=== PATIENT | male | born 1955 | race Caucasian/White ===

== ENCOUNTER 2016-12-13 07:49 | Outpatient (CLI) | payer OTHER | END 2016-12-13 07:50 | disposition home or self-care (01) | DX: E78.2 Mixed hyperlipidemia (principal); E11.9 Type 2 diabetes mellitus without complications; R53.83 Other fatigue ==

== ENCOUNTER 2017-02-13 07:11 | Day surgery (SDC) | payer OTHER ==
[2017-02-13] MEDS ORDERED: LACTATED RINGERS 1,000 ML IV ONE (07:26)
[2017-02-13] MEDS ORDERED: fentaNYL 100 MCG/2 ML VIAL IVP ONE (09:32)
[2017-02-13] MEDS ORDERED: MIDAZOLAM 2 MG/2 ML VIAL IVP ONE (09:32)
[2017-02-13 10:49] VITALS: BP 128/71
== END 2017-02-13 07:12 | disposition home or self-care (01) ==
LOC: SDS 07:11
PROVIDERS: ATTEND Surgery
PROC: 0DJ08ZZ Inspection of Upper Intestinal Tract, Via Natural or Artificial Opening Endoscopic (ICD-10-PCS; principal; 2017-02-13 08:15)
PROC: 0DBK8ZX Excision of Ascending Colon, Via Natural or Artificial Opening Endoscopic, Diagnostic (ICD-10-PCS; 2017-02-13 08:15)
DX: Z12.11 Encounter for screening for malignant neoplasm of colon (principal); D12.5 Benign neoplasm of sigmoid colon; Z87.19 Personal history of other diseases of the digestive system; K64.8 Other hemorrhoids; Z88.5 Allergy status to narcotic agent; Z79.01 Long term (current) use of anticoagulants; E78.5 Hyperlipidemia, unspecified; I10 Essential (primary) hypertension; F41.9 Anxiety disorder, unspecified; Z87.891 Personal history of nicotine dependence; Z79.82 Long term (current) use of aspirin; E11.9 Type 2 diabetes mellitus without complications; I48.91 Unspecified atrial fibrillation; Z79.84 Long term (current) use of oral hypoglycemic drugs
CPT/HCPCS: 43235; 45380; J7120; 88305

== ENCOUNTER 2017-10-05 12:34 | Outpatient (CLI) | payer OTHER ==
--- NOTE | 2017-10-05 16:26 | MRI Report ---
EXAM: MRI CERVICAL SPINE WITHOUT CONTRAST EXAM DATE: 10/05/2017 01:22 PM. CLINICAL HISTORY: RADICULOPATHY, CERVICAL REGION. Right shoulder pain. COMPARISONS: CT head 01/10/2016 TECHNIQUE: Multiplanar, multisequence T1-weighted and fluid-sensitive sequences of the cervical spine without contrast. Other: None. FINDINGS: Neurologic Structures: The visualized posterior fossa structures are unremarkable. No signal abnormal ity in the visualized spinal cord. Alignment: No scoliosis or spondylolisthesis. Bone Marrow: No gross fractures . A T1 and T2 hyperintense lesion within the C5 vertebral body is non specific but favored to represent a benign hemangioma. No marrow edema. 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 Interspace Levels/Facets: C1-C2: Unremarkable. C2-C3: Mild disk height loss and desiccation. Moderate right and mild left facet arthropathy. Mild ri ght neuroforaminal narrowing. No left neuroforaminal. Mild central canal narrowing. C3-C4: Mild disk height loss and desiccation. Mild diffuse disk bulge. Moderate right and mild left u ncovertebral spurring. Mild bilateral facet arthropathy. Moderate right neuroforaminal narrowing. No left neuroforaminal narrowing. Mild central canal narrowing. C4-C5: Moderate disk height loss and desiccation. Moderate disk osteophyte complex with superimposed central protrusion measuring 4 mm (series 801 image 16) indenting the ventral aspect of the cord. Mod erate bilateral uncovertebral spurring. Mild bilateral facet arthropathy. Moderate central canal narr owing. Moderate right and mild left neuroforaminal narrowing. C5-C6: Moderate disk height loss and desiccation. Moderate disk osteophyte complex. Moderate to sever e bilateral uncovertebral spurring. Mild bilateral facet arthropathy. Moderate central canal narrowin g. Moderate to severe bilateral neuroforaminal narrowing. C6-C7: Moderate disk height loss and desiccation. Moderate posterior disk osteophyte complex, slightl y asymmetric to the left. Severe left and moderate to severe right uncovertebral spurring. Mild-to-mo derate bilateral facet arthropathy. Moderate to severe central canal narrowing. Moderate to severe le ft and moderate right neuroforaminal narrowing. C7-T1: No significant central canal or neuroforaminal narrowing. Musculature: Normal. No edema or fatty atrophy. Other: The paravertebral and prevertebral soft tissues are normal. IMPRESSION: 1. Moderate multilevel degenerative spondylosis, as detailed above and summarized below. 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 No evidence of acute fracture or malalignment. No bone marrow edema. No cor d signal abnormality at any level. 2. C2-C3 level demonstrates mild right neuroforaminal narrowing. No left neuroforaminal. Mild central canal narrowing. 3. C3-C4 level demonstrates moderate right neuroforaminal narrowing. No left neuroforaminal narrowing . Mild central canal narrowing. 4. C4-C5 level demonstrates moderate central canal narrowing. Moderate right and mild left neuroforam inal narrowing. 5. C5-C6 level demonstrates moderate central canal narrowing. Moderate to severe bilateral neuroforam inal narrowing. 6. C6-C7 level demonstrates moderate to severe central canal narrowing. Moderate to severe left and m oderate right neuroforaminal narrowing. [facility] Referring Provider Line: [phone] SITE ID: [id number]
== END 2017-10-05 12:35 | disposition home or self-care (01) ==
LOC: DI 12:34
PROVIDERS: ATTEND Orthopaedic Surgery
DX: M50.31 Other cervical disc degeneration, high cervical region (principal); M47.892 Other spondylosis, cervical region; M50.221 Other cervical disc displacement at C4-C5 level
CPT/HCPCS: 72141

== ENCOUNTER 2017-10-20 09:38 | Outpatient (CLI) | payer OTHER ==
[2017-10-20 10:14] LABS: ALBUMIN 4.3 g/dL (3.2-5.5); ALBUMIN/GLOBULIN RATIO 1.3 (1.0-2.2); ALKALINE PHOSPHATASE 59 IU/L (42-121); ALT ALANINE AMINOTRANSFERASE 78 IU/L (10-60); AST ASPARTATE AMINOTRANSFERASE 48 IU/L (10-42); BILIRUBIN,TOTAL 0.8 mg/dL (0.2-1.0); BUN - BLOOD UREA NITROGEN 17 mg/dL (6-20); CALCIUM 9.3 mg/dL (8.5-10.3); CARBON DIOXIDE - CO2 21 mmol/L (21-32); CHLORIDE 103 mmol/L (101-111); CHOL/HDL RATIO 6.9 (<5.0); CHOLESTEROL 242 mg/dL; GFR - MDRD 76 (>89); GLUCOSE 187 mg/dL (70-100); HDL CHOLESTEROL 35 mg/dL; SODIUM 136 mmol/L (135-145); TOTAL PROTEIN 7.5 g/dL (6.7-8.2)
[2017-10-20 10:35] LABS: LDL CHOLESTEROL,DIRECT 137 mg/dL; LDLD/HDL RATIO 3.9 (<3.6)
== END 2017-10-20 09:39 | disposition home or self-care (01) ==
LOC: LAB 09:38
PROVIDERS: ATTEND Family Medicine
DX: E78.5 Hyperlipidemia, unspecified (principal)
CPT/HCPCS: 36415; 80053; 80061

== ENCOUNTER 2017-11-04 09:44 | Outpatient (CLI) | payer OTHER ==
[2017-11-04 10:33] LABS: ALBUMIN 4.2 g/dL (3.2-5.5); ALBUMIN/GLOBULIN RATIO 1.6 (1.0-2.2); BILIRUBIN,TOTAL 0.7 mg/dL (0.2-1.0); CALCIUM 9.2 mg/dL (8.5-10.3); TOTAL PROTEIN 6.9 g/dL (6.7-8.2)
[2017-11-08 18:06] LABS: 18 KD (IGG) BAND NON-REACTIVE; 23 KD (IGG) BAND NON-REACTIVE; 23 KD (IGM) BLOT NON-REACTIVE; 28 KD (IGG) BAND NON-REACTIVE; 30 KD (IGG) BAND NON-REACTIVE; 39 KD (IGG) BAND NON-REACTIVE; 39 KD (IGM) BLOT NON-REACTIVE; 41 KD (IGG) BAND NON-REACTIVE; 41 KD (IGM) BLOT REACTIVE; 45 KD (IGG) BAND NON-REACTIVE; 58 KD (IGG) BAND NON-REACTIVE; 66 KD (IGG) BAND NON-REACTIVE; 93 KD (IGG) BAND NON-REACTIVE
== END 2017-11-04 09:45 | disposition home or self-care (01) ==
LOC: LAB 09:44
PROVIDERS: ATTEND Family Medicine
DX: R74.8 Abnormal levels of other serum enzymes (principal); E29.8 Other testicular dysfunction; R41.3 Other amnesia; R53.83 Other fatigue
CPT/HCPCS: 36415; 80053; 84403; 86617

== ENCOUNTER 2017-11-24 09:02 | Outpatient (CLI) | payer OTHER ==
--- NOTE | 2017-11-24 14:24 | Ultrasound Report ---
RIGHT UPPER QUADRANT ULTRASOUND: 11/24/2017 CLINICAL INDICATION: Elevated liver enzymes. TECHNIQUE: Real-time scanning was performed with circulation representative static images obtained. FINDINGS: The liver measures 18.8 cm. Hepatic echogenicity is increased, compatible with fatty infiltration. No focal parenchymal lesion or intrahepatic biliary dilatation is seen. The common bile duct measures 7 mm. The gallbladder is unremarkable. The right kidney measures 14.2 cm, and demonstrates no hydronephrosis. No free fluid is present. IMPRESSION: FATTY INFILTRATION OF THE LIVER. TD: 11/24/2017 14:22
== END 2017-11-24 09:03 | disposition home or self-care (01) ==
LOC: DI 09:02
PROVIDERS: ATTEND Family Medicine
DX: K76.0 Fatty (change of) liver, not elsewhere classified (principal)
CPT/HCPCS: 76705

== ENCOUNTER 2017-12-28 13:43 | Outpatient (CLI) | payer OTHER | END 2017-12-28 13:44 | disposition home or self-care (01) | LOC: SC 13:43 | PROVIDERS: ATTEND Nurse Practitioner Family | DX: G47.33 Obstructive sleep apnea (adult) (pediatric) (principal) | CPT/HCPCS: 99212; 99214 ==

== ENCOUNTER 2018-01-26 13:54 | Outpatient (CLI) | payer OTHER ==
[2018-01-26 14:20] LABS: CREATININE 1.1 mg/dL (0.6-1.2)
== END 2018-01-26 13:55 | disposition home or self-care (01) ==
LOC: LAB 13:54
PROVIDERS: ATTEND Family Medicine
DX: M54.16 Radiculopathy, lumbar region (principal)
CPT/HCPCS: 36415; 82565

== ENCOUNTER 2018-01-29 07:52 | Outpatient (CLI) | payer OTHER ==
[~2018-01-29 07:52] MED LIST: GADOBUTROL 10 MMOL/10 ML SYRINGE ONE
[2018-01-29] MEDS: GADOBUTROL 10 MMOL/10 ML SYRINGE IVP ONE (08:37)
--- NOTE | 2018-01-29 12:32 | MRI Report ---
MRI LUMBAR SPINE WITHOUT AND WITH CONTRAST EXAM DATE: 01/29/2018. INDICATION: 62-year-old male with left-sided low back pain and pain radiating into left buttock down back of left thigh and in left knee. History of previous hemilaminotomy and microdiskectomy at L5-S1. Please assess. TECHNIQUE: 1. Sagittal STIR, T1 and T2. 2. Axial T1 and T2. 3. 10 cc IV Gadavist. T1 axial and fat-saturated T1 sagittal. COMPARISON: 07/15/2013 ([facility]). FINDINGS: Interpretation assumes the presence of 5 [id number]-[id number], lumbar-type vertebrae. There is some straightening of the vertebral alignment with very minimal lordosis, unchanged. Alignme nt is otherwise unremarkable. Degenerative changes are demonstrated in the disks at all levels from L2-L3 to L5-S1. There is minima l disk space narrowing at L3-L4 with mild narrowing at L4-L5 and L5-S1, unchanged. The lumbar disk sp yeny heights are otherwise preserved. An intraosseous hemangioma is identified in the T12 vertebral body. The marrow signal intensity is ot herwise unremarkable. The conus terminates in an appropriate fashion at about the L1-L2 disk level. There is no abnormal th ickening or lipomatous change of the filum. Axial images were obtained from L2-L3 to L5-S1. Review level by level reveals the following: L2-L3: Broad-based, intra-/extraforaminal protrusions bilaterally. The previously demonstrated extrus ion posterolaterally on the right has completely resolved. No significant spinal stenosis. Mild to mo derate foraminal narrowing bilaterally, essentially unchanged. L3-L4: Broad-based intra-/extraforaminal protrusion on the right and extrusion on the left, essential ly unchanged. Early degenerative facet arthrosis without significant bony hypertrophy. No significant -appearing spinal stenosis. Moderate bilateral foraminal stenoses, essentially unchanged. L4-L5: Circumferential disk bulge with broad-based intra-/extraforaminal protrusions bilaterally. Deg enerative facet arthrosis without associated bony hypertrophy. Mild to moderate redundancy of the lig amenta flava. Mild mass effect on the thecal sac without significant spinal stenosis. Moderate forami nal stenoses, unchanged. L5-S1: Postsurgical changes are again demonstrated with evidence of previous left hemilaminotomy. The left ligamentum flavum has been partially removed. There is a moderate-sized extrusion paracentrally on the left that has increased in size since the previous study. It now projects posteriorly into th e spinal canal for close to 10 mm, compared to about 6.2 mm on the previous examination. There is hig h-grade left subarticular zone stenosis with posterior deflection and compression of the traversing l eft S1 nerve root in the left subarticular zone. Again demonstrated is a conjoined root sleeve for th e left L5 and S1 nerve roots, explaining the low position of the left L5 nerve root in the left L5-S1 foramen. No central zone or right subarticular zone stenosis. Mild foraminal stenoses. Postcontrast images demonstrate peripheral enhancement at the L5-S1 extrusion. No pathologic intraspi nal enhancement is identified. IMPRESSION: 1. Interval resolution of previously demonstrated, right-sided disk herniation at L2-L3 with resoluti on of previously seen right L2-L3 subarticular zone stenosis. 2. Interval increase in size of left-sided extrusion at L5-S1. This results in more severe left subar ticular zone stenosis. There is posterior deflection and compression of traversing left S1 nerve root . This almost certainly represents the cause for the patient's left-sided radicular symptoms. Recomme nd clinical correlation for left S1 radiculopathy. Referring Provider Line: [phone] SITE ID: [id number]
== END 2018-01-29 07:53 | disposition home or self-care (01) ==
LOC: DI 07:52
PROVIDERS: ATTEND Family Medicine
DX: M51.17 Intervertebral disc disorders with radiculopathy, lumbosacral region (principal)
CPT/HCPCS: 72158; A9585

== ENCOUNTER 2018-05-15 08:20 | Outpatient (CLI) | payer OTHER ==
[2018-05-15 09:16] LABS: ALBUMIN 4.3 g/dL (3.2-5.5); ALBUMIN/GLOBULIN RATIO 1.5 (1.0-2.2); ALKALINE PHOSPHATASE 55 IU/L (42-121); ALT ALANINE AMINOTRANSFERASE 51 IU/L (10-60); AST ASPARTATE AMINOTRANSFERASE 33 IU/L (10-42); BILIRUBIN,TOTAL 1.1 mg/dL (0.2-1.0); BUN - BLOOD UREA NITROGEN 14 mg/dL (6-20); CALCIUM 9.3 mg/dL (8.5-10.3); CARBON DIOXIDE - CO2 26 mmol/L (21-32); CHLORIDE 103 mmol/L (101-111); CHOL/HDL RATIO 3.7 (<5.0); CHOLESTEROL 134 mg/dL; GFR - MDRD 76 (>89); GLUCOSE 204 mg/dL (70-100); HDL CHOLESTEROL 36 mg/dL; LDL CHOLESTEROL,CALCULATED 54 mg/dL; LDL/HDL RATIO 1.5 (<3.6); SODIUM 138 mmol/L (135-145); TOTAL PROTEIN 7.1 g/dL (6.7-8.2); VLDL CHOLESTEROL 44 mg/dL
== END 2018-05-15 08:21 | disposition home or self-care (01) ==
LOC: LAB 08:20
PROVIDERS: ATTEND Family Medicine
DX: R74.8 Abnormal levels of other serum enzymes (principal); E78.5 Hyperlipidemia, unspecified
CPT/HCPCS: 36415; 80053; 80061; 83721

== ENCOUNTER 2018-07-05 15:53 | Outpatient (CLI) | payer OTHER ==
[2018-07-05 16:20] LABS: BASOPHILS % (AUTO) 0.5 %; EOSINOPHILS # (AUTO) 0.1 10^3/uL (0.0-0.7); EOSINOPHILS % (AUTO) 1.1 %; LYMPHOCYTES # (AUTO) 1.8 10^3/uL (1.5-3.5); LYMPHOCYTES % (AUTO) 24.3 %; MEAN CORPUSCULAR HEMOGLOBIN 32.3 pg (27.0-31.0); MEAN CORPUSCULAR HGB CONC 35.2 g/dL (32.0-36.0); MEAN CORPUSCULAR VOLUME 91.6 fL (80.0-94.0); MEAN PLATELET VOLUME 7.8 fL (7.4-11.4); MONOCYTES # (AUTO) 0.5 10^3/uL (0.0-1.0); MONOCYTES % (AUTO) 6.1 %; NEUTROPHILS # (AUTO) 5.2 10^3/uL (1.5-6.6); PLT - PLATELET COUNT 212 10^3/uL (130-450); RED BLOOD COUNT 4.65 10^6/uL (4.70-6.10); RED CELL DISTRIBUTION WIDTH 13.5 % (12.0-15.0); WHITE BLOOD COUNT 7.6 x10^3/uL (4.8-10.8)
[2018-07-05 16:30] LABS: ALBUMIN 4.1 g/dL (3.2-5.5); ALBUMIN/GLOBULIN RATIO 1.4 (1.0-2.2); BILIRUBIN,TOTAL 0.7 mg/dL (0.2-1.0); CALCIUM 9.9 mg/dL (8.5-10.3); CREATININE 0.9 mg/dL (0.6-1.2)
[2018-07-05 19:25] LABS: HB2 TOTAL 16.5 g/dL; HEMOGLOBIN A1C 1.02 g/dL; HEMOGLOBIN A1C % 7.8 % (4.6-6.2)
== END 2018-07-05 15:54 | disposition home or self-care (01) ==
LOC: LAB 15:53
PROVIDERS: ATTEND Family Medicine
DX: I10 Essential (primary) hypertension (principal); E11.9 Type 2 diabetes mellitus without complications
CPT/HCPCS: 36415; 80053; 82043; 83036; 85025

== ENCOUNTER 2018-12-05 10:32 | Outpatient (CLI) | payer OTHER ==
[2018-12-05 10:50] LABS: BASOPHILS % (AUTO) 0.5 %; EOSINOPHILS # (AUTO) 0.2 10^3/uL (0.0-0.7); EOSINOPHILS % (AUTO) 3.3 %; HGB - HEMOGLOBIN 15.1 g/dL (14.0-18.0); LYMPHOCYTES # (AUTO) 1.7 10^3/uL (1.5-3.5); LYMPHOCYTES % (AUTO) 24.3 %; MEAN CORPUSCULAR HEMOGLOBIN 31.6 pg (27.0-31.0); MEAN CORPUSCULAR HGB CONC 35.5 g/dL (32.0-36.0); MEAN CORPUSCULAR VOLUME 89.1 fL (80.0-94.0); MEAN PLATELET VOLUME 7.9 fL (7.4-11.4); MONOCYTES # (AUTO) 0.5 10^3/uL (0.0-1.0); MONOCYTES % (AUTO) 6.9 %; NEUTROPHILS # (AUTO) 4.5 10^3/uL (1.5-6.6); PLT - PLATELET COUNT 199 10^3/uL (130-450); RED BLOOD COUNT 4.77 10^6/uL (4.70-6.10); RED CELL DISTRIBUTION WIDTH 13.6 % (12.0-15.0); WHITE BLOOD COUNT 6.9 x10^3/uL (4.8-10.8)
[2018-12-05 11:03] LABS: HB2 TOTAL 17.3 g/dL; HEMOGLOBIN A1C 0.88 g/dL; HEMOGLOBIN A1C % 6.8 % (4.6-6.2)
[2018-12-05 11:14] LABS: ALBUMIN 4.2 g/dL (3.2-5.5); ALBUMIN/GLOBULIN RATIO 1.4 (1.0-2.2); ALKALINE PHOSPHATASE 51 IU/L (42-121); ALT ALANINE AMINOTRANSFERASE 42 IU/L (10-60); AST ASPARTATE AMINOTRANSFERASE 30 IU/L (10-42); BILIRUBIN,TOTAL 1.1 mg/dL (0.2-1.0); BUN - BLOOD UREA NITROGEN 19 mg/dL (6-20); CALCIUM 9.3 mg/dL (8.5-10.3); CARBON DIOXIDE - CO2 24 mmol/L (21-32); CHLORIDE 104 mmol/L (101-111); CHOLESTEROL 147 mg/dL; CREATININE 0.8 mg/dL (0.6-1.2); GFR - MDRD 98 (>89); GLUCOSE 190 mg/dL (70-100); HDL CHOLESTEROL 37 mg/dL; LDL CHOLESTEROL,CALCULATED 70 mg/dL; LDL/HDL RATIO 1.9 (<3.6); SODIUM 138 mmol/L (135-145); TOTAL PROTEIN 7.1 g/dL (6.7-8.2); VLDL CHOLESTEROL 40 mg/dL
== END 2018-12-05 10:33 | disposition home or self-care (01) ==
LOC: LAB 10:32
PROVIDERS: ATTEND Family Medicine
DX: I10 Essential (primary) hypertension (principal); E78.5 Hyperlipidemia, unspecified; E11.9 Type 2 diabetes mellitus without complications; F32.9 Major depressive disorder, single episode, unspecified
CPT/HCPCS: 36415; 80053; 80061; 83036; 83721; 84443; 85025

== ENCOUNTER 2018-12-27 11:23 | Outpatient (CLI) | payer OTHER | END 2018-12-27 11:24 | disposition home or self-care (01) | LOC: SC 11:23 | PROVIDERS: ATTEND Nurse Practitioner Family | DX: G47.33 Obstructive sleep apnea (adult) (pediatric) (principal) | CPT/HCPCS: 99212; 99214 ==

== ENCOUNTER 2018-12-27 13:32 | Outpatient (CLI) | payer OTHER ==
[2018-12-27] MEDS ORDERED: GADOBUTROL 10 MMOL/10 ML VIAL ONE (13:42)
[2018-12-27] MEDS ORDERED: GADOBUTROL 10 MMOL/10 ML VIAL IVP ONE (14:13)
--- NOTE | 2018-12-28 07:02 | MRI Report ---
Reason: LUMBAR RADICULOPATHY,LEG WEAKNESS,LEFT,LOW BACK PA Procedure Date: 12/27/2018 Accession Number: [id number] / [id number] Procedure: MRI - Lumbar Spine W/WO CPT Code: FULL RESULT: EXAM: MRI LUMBAR SPINE WITHOUT AND WITH CONTRAST EXAM DATE: 12/27/2018 02:44 PM. CLINICAL HISTORY: Lumbar radiculopathy. Left leg weakness. Low back pain. Previous lumbar spine surgery. COMPARISONS: LUMBAR SPINE W/WO 01/29/2018 8:00 AM. TECHNIQUE: Multiplanar, multisequence T1-weighted and fluid-sensitive sequences of the lumbar spine from T12 to S1 before and after administration of intravenous contrast. Other: None. IV contrast: 10 mL Gadavist. FINDINGS: Neurologic Structures: The conus terminates at L1. The conus medullaris and cauda equina are unremarkable. Alignment: Minimal L4 on L5 anterolisthesis. No significant alignment change. Bone Marrow: Five [id number] lumbar vertebral bodies are assumed. Lumbar vertebral body heights are maintained. No acute marrow edema. Disk Levels/Facets: T12-L1: Unremarkable. L1-L2: Unremarkable. L2-L3: Stable mild to moderate bilateral (right greater than left) foraminal stenosis from intraforaminal bilateral disk protrusions with osteophyte. Patent central canal. Enhancing right intraforaminal annular fissure. L3-L4: Stable appearing degenerative disk disease and facet arthropathy. Circumferential disk bulge. Additional asymmetric intraforaminal and far lateral disk protrusions with osteophytes, larger on the left than the right. No significant or progressive central stenosis. Again seen are findings of bilateral foraminal stenosis, moderate on the right and moderate to severe on the left. L4-L5: New moderate to severe left foraminal stenosis secondary to an upward migrating disk extrusion starting to the left of midline and extending upward and laterally into the left neural foramen with apparent left L4 nerve root compression. Degenerative changes at this level otherwise appear stable. L5-S1: Previous left-sided laminectomy and diskectomy. Disk extrusion on the left seen previously is no longer evident, no recurrent focal disk extrusion. Residual shallow left of midline posterior protrusion with annular T2 hyperintensity and enhancement that may be degenerative, postoperative or both. Enhancing epidural scar along the surgical tract on the left. Patent central canal and right lateral recess. No significant residual degenerative left lateral recess stenosis where there is enhancing residual perioperative scar. Stable appearing degenerative foraminal stenosis, mild on the right and moderate on the left from left intraforaminal disk protrusion with osteophyte that is similar to prior. Again demonstrated are findings of left L5 and S1 conjoined nerve roots. Spinal Canal: No enhancing masses within the spinal canal. No epidural abscess. Musculature: No acute abnormality. Other: None. IMPRESSION: 1. New severe appearing foraminal stenosis on the left at L4-L5 from intraforaminal disk extrusion. 2. Again seen are findings of previous surgery posteriorly on the left at L5-S1. Residual epidural scar but no focal recurrent disk extrusion. 3. Stable degenerative foraminal stenosis at L5-S1, most notable on the left. Conjoined left L5 and S1 nerve roots placed the L5 nerve lower in the foramen than usual which places it at increased risk of impingement from degenerative foraminal stenosis which is present at this level on the left. 4. Stable prominent bilateral degenerative foraminal stenosis at L3-L4, especially severe on the left. 5. Stable appearing more prominent right than left foraminal stenosis at L2-L3. Comment: The following findings are so common in adults without low back pain that while we report their presence, they must be interpreted with caution and in the context of the clinical situation. (Reference Mattvik et al, Spine 2001) Prevalence of findings in patients without low back pain: Disk degeneration (any evidence): 92% Disk desiccation/T2 signal loss: 83% Disk height loss: 56% Disk bulge: 64% Disk protrusion: 32% Annular tear/high intensity zone: 38% [facility]
== END 2018-12-27 13:33 | disposition home or self-care (01) ==
LOC: DI 13:32
PROVIDERS: ATTEND Family Medicine
DX: M48.061 Spinal stenosis, lumbar region without neurogenic claudication (principal); M54.5 Low back pain; M54.16 Radiculopathy, lumbar region; G83.10 Monoplegia of lower limb affecting unspecified side
CPT/HCPCS: 72158; A9585

== ENCOUNTER 2019-02-28 11:17 | Outpatient (CLI) | payer OTHER | END 2019-02-28 11:18 | disposition home or self-care (01) | LOC: SC 11:17 | PROVIDERS: ATTEND Nurse Practitioner Family | DX: G47.33 Obstructive sleep apnea (adult) (pediatric) (principal) | CPT/HCPCS: 99212; 99214 ==

== ENCOUNTER 2019-03-26 08:31 | Outpatient (CLI) | payer OTHER ==
[2019-03-26 08:52] LABS: BASOPHILS % (AUTO) 0.6 %; EOSINOPHILS # (AUTO) 0.2 10^3/uL (0.0-0.7); EOSINOPHILS % (AUTO) 4.1 %; HGB - HEMOGLOBIN 14.3 g/dL (14.0-18.0); LYMPHOCYTES # (AUTO) 1.6 10^3/uL (1.5-3.5); LYMPHOCYTES % (AUTO) 32.8 %; MEAN CORPUSCULAR HEMOGLOBIN 30.9 pg (27.0-31.0); MEAN CORPUSCULAR HGB CONC 34.9 g/dL (32.0-36.0); MEAN CORPUSCULAR VOLUME 88.5 fL (80.0-94.0); MEAN PLATELET VOLUME 7.7 fL (7.4-11.4); MONOCYTES # (AUTO) 0.4 10^3/uL (0.0-1.0); MONOCYTES % (AUTO) 7.8 %; NEUTROPHILS # (AUTO) 2.7 10^3/uL (1.5-6.6); NEUTROPHILS % (AUTO) 54.7 %; PLT - PLATELET COUNT 215 10^3/uL (130-450); RED BLOOD COUNT 4.64 10^6/uL (4.70-6.10); RED CELL DISTRIBUTION WIDTH 14.5 % (12.0-15.0); WHITE BLOOD COUNT 4.9 x10^3/uL (4.8-10.8)
[2019-03-26 09:16] LABS: HB2 TOTAL 14.6 g/dL; HEMOGLOBIN A1C 0.67 g/dL; HEMOGLOBIN A1C % 6.4 % (4.6-6.2)
[2019-03-26 09:19] LABS: ALBUMIN 4.3 g/dL (3.2-5.5); ALBUMIN/GLOBULIN RATIO 1.4 (1.0-2.2); ALKALINE PHOSPHATASE 47 IU/L (42-121); ALT ALANINE AMINOTRANSFERASE 33 IU/L (10-60); AST ASPARTATE AMINOTRANSFERASE 27 IU/L (10-42); BUN - BLOOD UREA NITROGEN 15 mg/dL (6-20); CALCIUM 9.4 mg/dL (8.5-10.3); CARBON DIOXIDE - CO2 24 mmol/L (21-32); CHLORIDE 103 mmol/L (101-111); CHOLESTEROL 139 mg/dL; CREATININE 1.1 mg/dL (0.6-1.2); GFR - MDRD 68 (>89); GLUCOSE 140 mg/dL (70-100); HDL CHOLESTEROL 35 mg/dL; LDL CHOLESTEROL,CALCULATED 64 mg/dL; LDL/HDL RATIO 1.8 (<3.6); SODIUM 139 mmol/L (135-145); TOTAL PROTEIN 7.4 g/dL (6.7-8.2); VLDL CHOLESTEROL 40 mg/dL
== END 2019-03-26 08:32 | disposition home or self-care (01) ==
LOC: LAB 08:31
PROVIDERS: ATTEND Family Medicine
DX: E78.5 Hyperlipidemia, unspecified (principal); E11.9 Type 2 diabetes mellitus without complications; F41.9 Anxiety disorder, unspecified; I10 Essential (primary) hypertension
CPT/HCPCS: 36415; 80053; 80061; 83036; 83721; 84443; 85025

== ENCOUNTER 2019-06-15 13:35 | Emergency (ER) | payer OTHER ==
[2019-06-15 13:47] VITALS: BP 160/72
[2019-06-15] MEDS ORDERED: BUFFERED LIDOCAINE 10 ML SYRINGE SUBQ STA (13:48)
--- NOTE | 2019-06-15 13:49 | ED Physician Documentation ---
PD HPI UPPER EXT INJURY - Stated complaint Stated Complaint: FINGER LAC - Chief complaint Chief Complaint: Laceration - History obtained from History obtained from: Patient - History of Present Illness Location: Left (63-year-old gentleman who is up-to-date on tetanus (a few months ago) who cut his left middle finger with a table saw at home just prior to arrival.) Review of Systems Constitutional: reports: Reviewed and negative Eyes: reports: Reviewed and negative Ears: reports: Reviewed and negative PD PAST MEDICAL HISTORY - Past Medical History Cardiovascular: Hypertension, Atrial fibrillation Endocrine/Autoimmune: Type 2 diabetes GI: Ulcers : Benign prostate hypertrophy Psych: ADD/ADHD - Past Surgical History Past Surgical History: Yes General: EGD Ortho: Spine surgery Cardiovascular: Other - Present Medications Home Medications: Ambulatory Orders Medication Instructions Recorded Confirmed Escitalopram Oxalate [Lexapro] DAILY 01/10/16 Gabapentin [Neurontin] BID 01/10/16 Hydrocodone/Acetaminophen [Vicodin 01/10/16 Hp 10-300 mg Tablet] RX: Atorvastatin [Lipitor] 4 DAILY 01/10/16 RX: Finasteride 1 DAILY 01/10/16 RX: Losartan [Cozaar] 50 mg PO DAILY 01/10/16 01/10/16 RX: Vitamin B Complex 01/10/16 RX: metFORMIN [Glucophage] 1,000 mg PO BID 01/10/16 02/13/17 Tamsulosin [Flomax] 0.4 DAILY 01/10/16 diazePAM [Valium] 5 mg PO TID PRN #15 tablet 01/10/16 02/13/17 Apixaban [Eliquis] 5 mg PO BID 02/10/17 02/13/17 RX: Glipizide [Glipizide ER] 1 BID 02/13/17 RX: diltiaZEM [Cardizem] 2 DAILY 02/13/17 - Allergies Allergies/Adverse Reactions: Allergies Allergy/AdvReac Type Severity Reaction Status Date / Time morphine Allergy Itching Verified 01/10/16 05:05 NSAIDS (Non-Steroidal Allergy Emesis Verified 01/10/16 05:05 Anti-Inflamma sotalol HCl * [From Betapace] Allergy Unknown Verified 01/10/16 05:05 Beta-Blockers AdvReac Unknown Verified 02/13/17 07:33 (Beta-Adrenergic Bloc - Social History Does the pt smoke?: No Smoking Status: Never smoker Does the pt drink ETOH?: No Does the pt have substance abuse?: No - Immunizations Immunizations are current?: Yes PD ED PE NORMAL - Vitals Vital signs reviewed: Yes - General General: Alert and oriented X 3, No acute distress - Extremities Extremities: Other (On the side of the tip of the left middle finger there is some tissue and nail loss, initially does not look like anything be able to be sutured but will reexamine after anesthesia. No neurovascular compromise.) - Neuro Neuro: Alert and oriented X 3, Normal speech Results - Vitals Vitals: Vital Signs - 24 hr 06/15/19 13:45 Temperature 36.3 C L Heart Rate 73 Respiratory 14 Rate Blood Pressure 160/72 H O2 Saturation 98 Oxygen O2 Source Room air Procedures - General procedure General procedure: After a digital block of the left middle finger the wound was irrigated and more closely examined. Although there was some intact skin across the wound for the most part it was a tissue avulsion and could not be sutured. It was dressed with Xeroform and tube gauze. Departure - Departure Disposition: 01 Home, Self Care Clinical Impression: Avulsion of fingertip Condition: Good Record reviewed to determine appropriate education?: Yes Instructions: ED Laceration Amputation Finger Tip Open Tx Comments: Keep the current dressing on until Monday. After that you can wash briefly with soap and water and keep it covered after that with a nonstick dressing with bacitracin. Return for new or worsening symptoms. He will probably have to perform daily wound care for a couple of weeks. Follow-up with your doctor For a wound check in about 4 days. Your blood pressure was elevated today on check into the emergency department. This does not mean that you have hypertension, it is a common phenomenon to come to the emergency department and have elevated blood pressure. I recommend that you see your primary care physician within the week to have it rechecked when you are feeling better. Discharge Date/Time: 06/15/19 14:12
== END 2019-06-15 14:12 | disposition home or self-care (01) ==
LOC: ED 13:35
DX: S61.313A Laceration without foreign body of left middle finger with damage to nail, initial encounter (principal); W31.2XXA Contact with powered woodworking and forming machines, initial encounter; Y93.89 Activity, other specified; Y92.009 Unspecified place in unspecified non-institutional (private) residence as the place of occurrence of the external cause; I10 Essential (primary) hypertension; I48.91 Unspecified atrial fibrillation; Z79.01 Long term (current) use of anticoagulants; E11.9 Type 2 diabetes mellitus without complications; Z79.84 Long term (current) use of oral hypoglycemic drugs

== ENCOUNTER 2019-11-04 13:51 | Outpatient (CLI) | payer OTHER ==
[2019-11-04 15:01] LABS: ALBUMIN 4.5 g/dL (3.2-5.5); ALBUMIN/GLOBULIN RATIO 1.5 (1.0-2.2); BILIRUBIN,TOTAL 0.8 mg/dL (0.2-1.0); CALCIUM 9.7 mg/dL (8.5-10.3); CREATININE 1.1 mg/dL (0.6-1.2); TOTAL PROTEIN 7.5 g/dL (6.7-8.2)
== END 2019-11-04 13:52 | disposition home or self-care (01) ==
LOC: LAB 13:51
PROVIDERS: ATTEND Nurse Practitioner Family
DX: E78.5 Hyperlipidemia, unspecified (principal)
CPT/HCPCS: 36415; 80053

== ENCOUNTER 2019-11-05 14:39 | Outpatient (CLI) | payer OTHER ==
[2019-11-05] MEDS ORDERED: GADOBUTROL 10 MMOL/10 ML VIAL ONE (15:35)
[2019-11-05] MEDS ORDERED: GADOBUTROL 10 MMOL/10 ML VIAL IVP ONE (15:44)
--- NOTE | 2019-11-05 17:38 | MRI Report ---
Reason: LEG WEAKNESS LT, LUMBAR RADICULOPATHY Procedure Date: 11/05/2019 Accession Number: [id number] / [id number] Procedure: MRI - Lumbar Spine W/WO CPT Code: Final Report FULL RESULT: EXAM: MRI LUMBAR SPINE WITHOUT AND WITH CONTRAST EXAM DATE: 11/05/2019 03:06 PM. CLINICAL HISTORY: Leg weakness left, lumbar radiculopathy. COMPARISONS: LUMBAR SPINE W/WO 12/27/2018 1:40 PM. TECHNIQUE: Multiplanar, multisequence T1-weighted and fluid-sensitive sequences of the lumbar spine from T12 to S1 before and after administration of intravenous contrast. Other: None. IV contrast: 10 mL Gadavist given IV, no reaction. FINDINGS: Neurologic Structures: The conus terminates at T12-L1. The conus medullaris and cauda equina are unremarkable. Alignment: No scoliosis or spondylolisthesis. Bone Marrow: Five crz-zms-apxdouc lumbar vertebral bodies are assumed. No gross fractures or worrisome bone lesions. No bone marrow replacement or abnormal enhancement. Benign-appearing hemangioma at T12. Stable. Disk Levels/Facets: T12-L1: Unremarkable. L1-L2: Unremarkable. L2-L3: Mild broad-based bulge. No focal protrusion. No central stenosis. Mild bilateral foraminal stenosis. Slightly prominent facets. L3-L4: Disk dehydration, far left lateral annular tear and extrusion extends in the neural foramina with effacement and flattening of the left L3 root as it exits. This is similar to previous. Moderate right foraminal narrowing also seen secondary to disk. L4-L5: Annular tear, small focal superiorly directed disk extrusion is again identified, extending superiorly a distance of about 7.8 mm. This also partly extends into the left neural foramina with severe left foraminal stenosis. Prominent facets also are present. Overall, this is about the same as before. L5-S1: Since the previous examination, there is a new, fairly large disk extrusion with mass effect on the thecal sac, and left S1 root. Small amount of overlying enhancement is present. Series 1001 image 3. This measures 9 x 10 mm transversely and extends for a cephalocaudal distance of 11.4 mm. Effacement and deformity of the left conjoined L5 and S1 nerve root. Postoperative changes, undersurface left hemilaminotomy. Mild to moderate right foraminal stenosis secondary to disk bulge. Spinal Canal: No epidural masses or abscesses. Musculature: Postoperative changes. Moderate fatty atrophy of the multifidus muscle is present. Other: None. IMPRESSION: 1. Spinal cord has normal appearance. No fractures. Benign T12 hemangioma. Postoperative changes and some fatty atrophy of the multifidus muscle is seen. 2. L3-L4 shows a far left lateral annular tear and extrusion of the neural foramina with effacement and flattening of the left L3 root. Similar to previous. Moderate right foraminal narrowing secondary to this. 3. L4-L5 shows an annular tear and a focal superiorly directed disk extrusion, similar to the previous examination creating severe left foraminal stenosis. 4. L5-S1 shows interval development of a large disk extrusion with mass effect on the thecal sac and the left conjoined L5 and S1 nerve root effacement and deformity is present. Mild central stenosis. Mild to moderate right foraminal stenosis secondary to disk bulge. Comment: The following findings are so common in adults without low back pain that while we report their presence, they must be interpreted with caution and in the context of the clinical situation. (Reference Delontek et al, Spine 2001) Prevalence of findings in patients without low back pain: Disk degeneration (any evidence): 92% Disk desiccation/T2 signal loss: 83% Disk height loss: 56% Disk bulge: 64% Disk protrusion: 32% Annular tear/high intensity zone: 38% [facility]
== END 2019-11-05 14:40 | disposition home or self-care (01) ==
LOC: DI 14:39
PROVIDERS: ATTEND Family Medicine
DX: M51.26 Other intervertebral disc displacement, lumbar region (principal); M51.36 Other intervertebral disc degeneration, lumbar region; M51.27 Other intervertebral disc displacement, lumbosacral region; M48.061 Spinal stenosis, lumbar region without neurogenic claudication; M48.07 Spinal stenosis, lumbosacral region; D18.09 Hemangioma of other sites; M47.816 Spondylosis without myelopathy or radiculopathy, lumbar region
CPT/HCPCS: 72158; A9585

== ENCOUNTER 2019-12-13 11:21 | Outpatient (CLI) | payer OTHER ==
[2019-12-13 12:20] LABS: BUN - BLOOD UREA NITROGEN 15 mg/dL (6-20); CALCIUM 9.6 mg/dL (8.5-10.3); CARBON DIOXIDE - CO2 25 mmol/L (21-32); CHLORIDE 104 mmol/L (101-111); CHOL/HDL RATIO 4.9 (<5.0); CHOLESTEROL 171 mg/dL; CREATININE 1.2 mg/dL (0.6-1.2); GFR - MDRD 61 (>89); GLUCOSE 164 mg/dL (70-100); HDL CHOLESTEROL 35 mg/dL; LDL CHOLESTEROL,CALCULATED 86 mg/dL; LDL/HDL RATIO 2.5 (<3.6); SODIUM 139 mmol/L (135-145); VLDL CHOLESTEROL 50 mg/dL
[2019-12-13 12:31] LABS: HB2 TOTAL 15.4 g/dL; HEMOGLOBIN A1C 0.75 g/dL; HEMOGLOBIN A1C % 6.6 % (4.6-6.2)
[2019-12-14 11:15] LABS: HEPATITIS C ANTIBODY NON-REACTIVE (NON-REACTIVE)
== END 2019-12-13 11:22 | disposition home or self-care (01) ==
LOC: LAB 11:21
PROVIDERS: ATTEND Physician Assistant Medical
DX: E11.9 Type 2 diabetes mellitus without complications (principal); N40.0 Benign prostatic hyperplasia without lower urinary tract symptoms; Z11.59 Encounter for screening for other viral diseases
CPT/HCPCS: 36415; 80048; 80061; 83036; 83721; 84153; 86803

== ENCOUNTER 2019-12-20 14:30 | Outpatient (CLI) | payer OTHER | END 2019-12-20 23:59 | disposition home or self-care (01) | LOC: LAB.R 14:30 | PROVIDERS: ATTEND Family Medicine | DX: J11.1 Influenza due to unidentified influenza virus with other respiratory manifestations (principal) | CPT/HCPCS: 81599 ==

== ENCOUNTER 2019-12-20 15:09 | Outpatient (CLI) | payer OTHER ==
--- NOTE | 2019-12-20 23:32 | XRAY Report ---
Reason: FLU SYNDROME Procedure Date: 12/20/2019 Accession Number: [id number] / [id number] Procedure: XR - Chest 2 View X-Ray CPT Code: 13923 Final Report FULL RESULT: EXAM: CHEST RADIOGRAPHY EXAM DATE: 12/20/2019 03:20 PM. CLINICAL HISTORY: FLU SYNDROME. Sick for the last 8 days. Fever and dry cough. Was in [place] recently. COMPARISON: None. TECHNIQUE: 2 views. FINDINGS: Lungs/Pleura: No focal opacities evident. No pleural effusion. No pneumothorax. Normal volumes. Mediastinum: Heart and mediastinal contours are unremarkable. IMPRESSION: No acute cardiopulmonary disease seen. [facility]
== END 2019-12-20 15:10 | disposition home or self-care (01) ==
LOC: DI 15:09
PROVIDERS: ATTEND Family Medicine
DX: J11.1 Influenza due to unidentified influenza virus with other respiratory manifestations (principal)
CPT/HCPCS: 71046

== ENCOUNTER 2020-02-20 16:31 | Outpatient (CLI) | payer OTHER ==
--- NOTE | 2020-02-20 15:31 | SLEEP CARE CONSULTATION ---
Information from patient questionnaire entered by Mary Carmen Chauhan. I have reviewed and concur with the information entered by Mary Carmen Chauhan. This document represents the service I personally performed and the decisions made by me, Laura Olmos, RN, MSN, ENVIRONMENTAL COMPLIANCE ENGINEER. History of Present Illness Service Date and Time: 02/20/2020 1631 Previous diagnosis: Moderate, Obstructive Sleep Apnea-Hypopnea Syndrome AHI: 22 (in 2014) Reason for follow up: annual (last seen 2019) Equipment type: CPAP Equipment obtained from: [employer] (getting supplies as needed) Mask style: Nasal pillows Mask brand: Resmed Backup mask available: Yes (old mask ) Last cushion change: 2 weeks ago CPAP Compliance Data - Data Reviewed with Patient Average duration of nightly device use: 9.5 Compliance rate %: 91.1 (180 days) Current pressure setting (cmH2O): 15-20 Humidity settin Heated hose settin Average residual AHI: 7.3 Average large leak: 23 min 9 sec Subjective Missed days of use due to: reports: illness, travel (forgot CPAP) Patient concerns: reports: air blowing in eyes (rare - adjusts mask), dry mouth, nose, throat (dry mouth -moderate- a couple times a week). denies: aerophagia, mask discomfort, mask leak noise, condensation in mask/hose, nasal congestion Observed to snore while using device: Yes (when supine by patient and spouse) Current pressure setting perceived as: too low On therapy, patient: reports: sleeping better, awakening more refreshed, being more awake and alert during the day, more rested overall. denies: drowsiness while driving Initial [place] Sleepiness Scale score: 11 (in 2015) Allergies and Home Medications Home medication list reviewed: No (no changes) Review of Systems Review of systems same as previous: Yes Physical Exam Height: 5 ft 7 in Weight: 222 lb (home weight) Body Mass Index: 34.7 BMI Classification: Obese Impression and Plan 1. Obstructive Sleep Apnea-Hypopnea Syndrome,moderate , with good treatment compliance and slightly elevated residual AHI apnea control. On CPAP therapy, the patient has better sleep quality and is more rested overall. The patients pressure will be changed to autoCPAP 17-20 cmH20 For elevation of residual AHI and snore in supine position. Patient advised to contact me if pressure change is uncomfortable so that it can be adjusted. Goals for apnea control discussed. Oral dryness can be reduced by adjusting humidity setting higher or heated hose lower or by adjusting both settings. Oral dryness can also be reduced by reducing mask leaks. Patient advised that chronic oral dryness can affect dental health and advised to follow up with dentist. In addition, there are oral dryness products that can be used to reduce dryness. Patient to discuss best option with dentist. Patient has lost weight while ill. Currently patients BMI is 34.4 obesity class . Obesity increases the risk of apnea, CPAP pressure requ irements and overall health risks especially cardiovascular and diabetes. Thus patient is advised to continue to lose weight. Weight loss can be done with reducing portion size, reducing refined foods and balancing content with vegetables, fruit and protein. Also eating more slowly will allow more awareness of food intake and enjoyment of food while assisting patient to modify intake at each meal. A diet consultation can be helpful in achieving optimal weight loss goals. The BMI chart was reviewed. The patient would like to lose 40 pounds. Patient encouraged to discuss their weight loss goals with their PCP and consider a referral to a adobe block maker. The patient's CPAP pressure range should accommodate some weight loss. Symptoms to report for additional pressure adjustment discussed. Patient's apnea severity and rationale for treatment to reduce apnea, improve sleep quality and reduce cardiovascular and cerebrovascular events was reviewed. I also reviewed the benefit of consistent device use of CPAP for hypertension, cardiac disease. * * Change auto CPAP pressure to 17-20 cmH2O * Implement methods to reduce oral dryness * Notify me if snoring with mask or feeling that the pressure is too much or too little * Continue to lose weight * Call this office if any problems using CPAP * Return for follow up in 1 year , or sooner if concerns arise Visit Type: Telehealth Video (to reduce risk of COVID 19 risk) Video Type: EZ4U Patient Location: Home Location of Provider: Home Patient agrees and consents to this telehealth visit type: Yes Patient agrees to have their insurance billed: Yes Time Spent with Patient (minutes): 25 Provider Statement: I spent 100% of the Telehealth Video Call with the patient with greater than 50% spent counseling the patient and coordination of care.
== END 2020-02-20 16:32 | disposition home or self-care (01) ==
LOC: SC 16:31
PROVIDERS: ATTEND Nurse Practitioner Family
DX: G47.33 Obstructive sleep apnea (adult) (pediatric) (principal); E66.9 Obesity, unspecified; Z68.34 Body mass index [BMI] 34.0-34.9, adult

== ENCOUNTER 2020-06-05 10:11 | Outpatient (CLI) | payer OTHER ==
[2020-06-05 10:41] LABS: ALBUMIN 4.4 g/dL (3.2-5.5); ALBUMIN/GLOBULIN RATIO 1.6 (1.0-2.2); ALKALINE PHOSPHATASE 42 IU/L (42-121); ALT ALANINE AMINOTRANSFERASE 52 IU/L (10-60); AST ASPARTATE AMINOTRANSFERASE 31 IU/L (10-42); BILIRUBIN,TOTAL 0.8 mg/dL (0.2-1.0); BUN - BLOOD UREA NITROGEN 15 mg/dL (6-20); CALCIUM 9.4 mg/dL (8.5-10.3); CARBON DIOXIDE - CO2 27 mmol/L (21-32); CHLORIDE 101 mmol/L (101-111); CHOL/HDL RATIO 4.1 (<5.0); CHOLESTEROL 141 mg/dL; CREATININE 1.1 mg/dL (0.6-1.2); GLUCOSE 149 mg/dL (70-100); HDL CHOLESTEROL 34 mg/dL; LDL CHOLESTEROL,CALCULATED 65 mg/dL; LDL/HDL RATIO 1.9 (<3.6); SODIUM 138 mmol/L (135-145); TOTAL PROTEIN 7.1 g/dL (6.7-8.2); VLDL CHOLESTEROL 42 mg/dL
== END 2020-06-05 10:12 | disposition home or self-care (01) ==
LOC: LAB 10:11
PROVIDERS: ATTEND Internal Medicine Cardiovascular Disease
DX: I48.91 Unspecified atrial fibrillation (principal)
CPT/HCPCS: 36415; 80053; 80061; 83721; 84443

== ENCOUNTER 2020-07-13 15:44 | Outpatient (CLI) | payer OTHER ==
[2020-07-13 16:03] LABS: BASOPHILS % (AUTO) 0.5 %; EOSINOPHILS # (AUTO) 0.2 10^3/uL (0.0-0.7); HGB - HEMOGLOBIN 15.5 g/dL (14.0-18.0); LYMPHOCYTES # (AUTO) 3.1 10^3/uL (1.5-3.5); LYMPHOCYTES % (AUTO) 39.1 %; MEAN CORPUSCULAR HGB CONC 35.9 g/dL (32.0-36.0); MEAN CORPUSCULAR VOLUME 89.3 fL (80.0-94.0); MEAN PLATELET VOLUME 9.4 fL (7.4-11.4); MONOCYTES # (AUTO) 0.6 10^3/uL (0.0-1.0); MONOCYTES % (AUTO) 7.2 %; NEUTROPHILS % (AUTO) 50.6 %; PLT - PLATELET COUNT 211 10^3/uL (130-450); RED BLOOD COUNT 4.84 10^6/uL (4.70-6.10); RED CELL DISTRIBUTION WIDTH 12.8 % (12.0-15.0)
[2020-07-13 16:23] LABS: CREATININE,URINE 40.8 mg/dL
[2020-07-13 16:30] LABS: MICROALBUMIN,URINE < 0.2 mg/dL (0-300.0)
[2020-07-13 17:18] LABS: CALCIUM 10.1 mg/dL (8.5-10.3); CREATININE 1.1 mg/dL (0.6-1.2)
[2020-07-13 22:10] LABS: HEMOGLOBIN A1c% 6.3 % (4.27-6.07)
== END 2020-07-13 15:45 | disposition home or self-care (01) ==
LOC: LAB 15:44
PROVIDERS: ATTEND Physician Assistant Medical
DX: E11.40 Type 2 diabetes mellitus with diabetic neuropathy, unspecified (principal); E78.5 Hyperlipidemia, unspecified; N40.0 Benign prostatic hyperplasia without lower urinary tract symptoms; Z79.01 Long term (current) use of anticoagulants
CPT/HCPCS: 36415; 80048; 82043; 82570; 83036; 84153; 85025

== ENCOUNTER 2020-08-05 15:16 | Outpatient (CLI) | payer OTHER ==
--- NOTE | 2020-08-05 16:26 | Ultrasound Report ---
PROCEDURE: Head or Neck Soft Tissue INDICATIONS: ENLARGED THYROID TECHNIQUE: Real time scanning was performed of the neck region of interest, with image documentation . COMPARISON: None. FINDINGS: No soft tissue neck abnormality seen bilaterally the thyroid gland measures 1.7 x 2.4 x 4 .7 cm on the right and on the left the gland measures 1.4 x 1.8 x 4.7 cm. The isthmus is normal in th ickness at 4 mm. No adjacent adenopathy is seen. IMPRESSION: Normal thyroid ultrasound, no evidence of adjacent adenopathy. Reviewed by: Casimiro Vidal MD on 08/05/2020 4:25 PM PDT Approved by: Casimiro Vidal MD on 08/05/2020 4:25 PM PDT Station ID: [id number]
== END 2020-08-05 15:17 | disposition home or self-care (01) ==
LOC: DI 15:16
PROVIDERS: ATTEND Physician Assistant Medical
DX: E01.0 Iodine-deficiency related diffuse (endemic) goiter (principal)
CPT/HCPCS: 76536

== ENCOUNTER 2020-10-08 08:00 | Outpatient (CLI) | payer OTHER ==
[2020-10-08 18:48] LABS: BASOPHILS % (AUTO) 0.6 %; EOSINOPHILS # (AUTO) 0.2 10^3/uL (0.0-0.7); HGB - HEMOGLOBIN 14.3 g/dL (14.0-18.0); LYMPHOCYTES # (AUTO) 2.1 10^3/uL (1.5-3.5); LYMPHOCYTES % (AUTO) 31.1 %; MEAN CORPUSCULAR HGB CONC 34.3 g/dL (32.0-36.0); MEAN CORPUSCULAR VOLUME 90.5 fL (80.0-94.0); MEAN PLATELET VOLUME 10.2 fL (7.4-11.4); MONOCYTES # (AUTO) 0.5 10^3/uL (0.0-1.0); MONOCYTES % (AUTO) 6.8 %; NEUTROPHILS # (AUTO) 3.8 10^3/uL (1.5-6.6); NEUTROPHILS % (AUTO) 57.7 %; PLT - PLATELET COUNT 220 10^3/uL (130-450); RED BLOOD COUNT 4.61 10^6/uL (4.70-6.10); RED CELL DISTRIBUTION WIDTH 12.7 % (12.0-15.0); WHITE BLOOD COUNT 6.6 x10^3/uL (4.8-10.8)
[2020-10-08 18:53] LABS: ALBUMIN 4.5 g/dL (3.2-5.5); ALBUMIN/GLOBULIN RATIO 1.7 (1.0-2.2); BILIRUBIN,TOTAL 0.6 mg/dL (0.2-1.0); CALCIUM 9.4 mg/dL (8.5-10.3); CREATININE 1.1 mg/dL (0.6-1.2); TOTAL PROTEIN 7.2 g/dL (6.7-8.2)
== END 2020-10-08 08:01 | disposition home or self-care (01) ==
LOC: LAB.N 08:00
PROVIDERS: ATTEND Family Medicine
DX: R10.32 Left lower quadrant pain (principal)
CPT/HCPCS: 36415; 80053; 85025

== ENCOUNTER 2020-12-25 13:07 | Outpatient (CLI) | payer BC, OTHER ==
[2020-12-25 13:22] LABS: CALCIUM 10.2 mg/dL (8.5-10.3); CREATININE 1.3 mg/dL (0.6-1.2)
[2020-12-25] MEDS ORDERED: IOPAMIDOL-300 50 ML VIAL PO ONE (14:43)
[2020-12-25] MEDS ORDERED: IOVERSOL 320 100 ML VIAL IVP ONE (14:43)
--- NOTE | 2020-12-25 16:18 | CT Report ---
PROCEDURE: Abdomen/Pelvis W INDICATIONS: LLQ ABD PAIN CONTRAST: IV CONTRAST: Optiray 320 ml: 100 PO CONTRAST: Isovue 300 ml50 TECHNIQUE: After the administration of IV and oral contrast, 5 mm thick sections acquired from the diaphragms to the symphysis. 5 mm thick coronal and sagittal reformats were acquired. For radiation dose reducti on, the following was used: automated exposure control, adjustment of mA and/or kV according to praneeth ent size. COMPARISON: 02/03/2015 FINDINGS: Image quality: Excellent. ABDOMEN: Lung bases: Calcified left lateral lung base granuloma. Lung bases are otherwise clear. Heart size is normal. Heavy coronary artery calcification. Solid organs: Liver the liver is slightly enlarged measuring 22.2 cm in length and demonstrates mild diffuse decreased attenuation. The spleen is in size and enhancement. Gallbladder is decompressed Biliary system is non dilated. Pancreas enhances normally. No adrenal nodules. Kidneys demonstrate normal size and enhancement, without hydronephrosis. Peritoneum and bowel: There is decompression of the distal colon with occasional diverticula seen. N o significant pericolic inflammatory changes. There are a few surgical clips at the GE junction sugge sting prior fundoplication. Normal appendix. No free fluid or air. Nodes and vessels: No retroperitoneal or mesenteric adenopathy by size criteria. Aorta and inferior vena cava are normal in size. Mild abdominal aortic calcification. Miscellaneous: No ventral hernias. PELVIS: Genitourinary: Bladder wall thickness is normal. Mild prostatomegaly. Miscellaneous: No inguinal hernias or adenopathy. Bones: No suspicious bony lesions. No vertebral body compression fractures. IMPRESSION: 1. Decompressed distal colon with occasional diverticular changes. No acute inflammation to suggest d iverticulitis or colitis. 2. Mild hepatomegaly and steatosis. 3. Mild prostatomegaly. Reviewed by: Bailey Fraser MD on 12/25/2020 4:16 PM PDT Approved by: Bailey Fraser MD on 12/25/2020 4:16 PM PDT Station ID: [id number]
== END 2020-12-25 13:08 | disposition home or self-care (01) ==
LOC: LAB 13:07
PROVIDERS: ATTEND Family Medicine
DX: R10.32 Left lower quadrant pain (principal); K57.90 Diverticulosis of intestine, part unspecified, without perforation or abscess without bleeding; K76.0 Fatty (change of) liver, not elsewhere classified; R16.0 Hepatomegaly, not elsewhere classified; N40.0 Benign prostatic hyperplasia without lower urinary tract symptoms
CPT/HCPCS: 36415; 74177; 80048; Q9967

== ENCOUNTER 2021-01-07 09:25 | Outpatient (CLI) | payer OTHER ==
[2021-01-07 10:14] LABS: ALBUMIN 4.2 g/dL (3.2-5.5); ALBUMIN/GLOBULIN RATIO 1.4 (1.0-2.2); ALKALINE PHOSPHATASE 47 IU/L (42-121); ALT ALANINE AMINOTRANSFERASE 51 IU/L (10-60); AST ASPARTATE AMINOTRANSFERASE 32 IU/L (10-42); BUN - BLOOD UREA NITROGEN 15 mg/dL (6-20); CALCIUM 9.3 mg/dL (8.5-10.3); CARBON DIOXIDE - CO2 26 mmol/L (21-32); CHLORIDE 103 mmol/L (101-111); CHOL/HDL RATIO 4.2 (<5.0); CHOLESTEROL 140 mg/dL; CREATININE 1.1 mg/dL (0.6-1.2); GFR - MDRD 67 (>89); GLUCOSE 173 mg/dL (70-100); HDL CHOLESTEROL 33 mg/dL; LDL CHOLESTEROL,CALCULATED 60 mg/dL; LDL/HDL RATIO 1.8 (<3.6); POTASSIUM 3.9 mmol/L (3.5-5.0); SODIUM 139 mmol/L (135-145); TOTAL PROTEIN 7.1 g/dL (6.7-8.2); TRIGLYCERIDES 236 mg/dL; VLDL CHOLESTEROL 47 mg/dL
[2021-01-07 12:24] LABS: ESTIMATED AVERAGE GLUCOSE 146 mg/dL (70-100); HEMOGLOBIN A1c% 6.7 % (4.27-6.07)
== END 2021-01-07 09:26 | disposition home or self-care (01) ==
LOC: LAB 09:25
PROVIDERS: ATTEND Physician Assistant Medical
DX: E11.9 Type 2 diabetes mellitus without complications (principal)
CPT/HCPCS: 36415; 80053; 80061; 83036; 83721

== ENCOUNTER 2021-02-16 16:32 | Outpatient (CLI) | payer OTHER ==
--- NOTE | 2021-02-16 17:07 | SLEEP CARE CONSULTATION ---
Information from patient questionnaire entered by Mary Caldwell. I have reviewed and concur with the information entered by Mary Caldwell. This document represents the service I personally performed and the decisions made by me, Radha Loya ARNP. History of Present Illness Service Date and Time: 02/16/2021 1632 Previous diagnosis: Moderate, Obstructive Sleep Apnea-Hypopnea Syndrome AHI: 22.0 Reason for follow up: annual (Last seen 02/2020) Equipment type: CPAP [facility] Mask style: Nasal pillows Backup mask available: Yes (old mask) Last cushion change: 2 weeks ago Year and Where: 2014 [facility] Type of Sleep Study: Polysomnography HPI additional information: IHSAN MYRICK was diagnosed to have moderate, AHI 22, obstructive sleep apnea- hypopnea syndrome and returned today for CPAP therapy annual follow-up. CPAP Compliance Data - Data Reviewed with Patient Average duration of nightly device use: 9 h 22 min Compliance rate %: 96.1 Current pressure setting (cmH2O): 16-17 Humidity settin Heated hose settin Average residual AHI: 6.6 Average large leak: 11 min 37 sec Subjective Missed days of use due to: reports: travel Patient concerns: reports: dry mouth, nose, throat, other (Snore while using device). denies: aerophagia, mask discomfort, air blowing in eyes, mask leak noise, condensation in mask/hose, nasal congestion, epistaxis Observed to snore while using device: Yes (when on his back) Current pressure setting perceived as: comfortable On therapy, patient: reports: sleeping better, awakening more refreshed, being more awake and alert during the day, more rested overall. denies: drowsiness while driving Initial [place] Sleepiness Scale score: 11 (in 2015) Current [place] Sleepiness Scale score: 5 Allergies and Home Medications Home medication list reviewed: Yes (increased atorvastatin ) Review of Systems Review of systems same as previous: Yes (no changes) Physical Exam Heart Rate: 69 O2 Saturation: 98 Height: 5 ft 7 in Weight: 227 lb Body Mass Index: 35.5 BMI Classification: Obese Impression and Plan 1. Obstructive Sleep Apnea-Hypopnea Syndrome, moderate, with good treatment compliance and fair apnea control with minimal elevation of residual AHI. On CPAP therapy, the patient has better sleep quality and is more rested overall. He gets some oral dryness. Oral dryness can be reduced by adjusting humidity setting higher or heated hose lower or by adjusting both settings. Patient advised that chronic oral dryness can affect dental health and advised to follow up with dentist. The patients CPAP is over 5 years old and of reasonable use. Thus, the CPAP will be updated. The new CPAPs also have a better humidity system which could assist control of patients dryness symptoms. A DWO prescription will be made. Compliance guidelines for new device and follow up discussed.Patient's apnea severity and rationale for treatment to reduce apnea, improve sleep quality and reduce cardiovascular and cerebrovascular events was reviewed. I also reviewed the benefit of consistent device use of CPAP for hypertension and cardiac disease. * Continue auto CPAP pressure at 16-17 cmH2O * Update machine * Notify me if snoring with mask or feeling that the pressure is too much or too little * Attempt to lose weight * Call this office if any problems using CPAP * Return for follow up one month after updating machine, or sooner if concerns arise Counseling Topics: Spare mask, Weight loss health impact Visit Type: In Office Time Spent with Patient (minutes): 21 Provider Statement: I spent 100% of the Face to Face Visit with the patient with greater than 50% spent counseling the patient and coordination of care.
== END 2021-02-16 16:33 | disposition home or self-care (01) ==
LOC: SC 16:32
PROVIDERS: ATTEND Nurse Practitioner Family
DX: G47.33 Obstructive sleep apnea (adult) (pediatric) (principal); E66.9 Obesity, unspecified; Z68.35 Body mass index [BMI] 35.0-35.9, adult
CPT/HCPCS: 99212; 99213

== ENCOUNTER 2021-07-05 13:58 | Outpatient (CLI) | payer OTHER | END 2021-07-05 13:59 | disposition home or self-care (01) | LOC: COV 13:58 | PROVIDERS: ATTEND Family Medicine | DX: R53.83 Other fatigue (principal); R68.83 Chills (without fever); Z20.822 Contact with and (suspected) exposure to COVID-19 ==

== ENCOUNTER 2021-08-09 09:04 | Outpatient (CLI) | payer MEDICARE ==
[2021-08-09 09:32] LABS: BASOPHILS % (AUTO) 0.4 %; EOSINOPHILS # (AUTO) 0.1 10^3/uL (0.0-0.7); EOSINOPHILS % (AUTO) 1.5 %; HCT - HEMATOCRIT 44.5 % (42.0-52.0); HGB - HEMOGLOBIN 15.3 g/dL (14.0-18.0); LYMPHOCYTES # (AUTO) 1.4 10^3/uL (1.5-3.5); LYMPHOCYTES % (AUTO) 25.6 %; MEAN CORPUSCULAR HEMOGLOBIN 31.6 pg (27.0-31.0); MEAN CORPUSCULAR HGB CONC 34.4 g/dL (32.0-36.0); MEAN CORPUSCULAR VOLUME 91.9 fL (80.0-94.0); MEAN PLATELET VOLUME 9.9 fL (7.4-11.4); MONOCYTES # (AUTO) 0.8 10^3/uL (0.0-1.0); MONOCYTES % (AUTO) 13.6 %; NEUTROPHILS # (AUTO) 3.2 10^3/uL (1.5-6.6); NEUTROPHILS % (AUTO) 58.4 %; PLT - PLATELET COUNT 185 10^3/uL (130-450); RED BLOOD COUNT 4.84 10^6/uL (4.70-6.10); RED CELL DISTRIBUTION WIDTH 13.2 % (12.0-15.0); WHITE BLOOD COUNT 5.5 x10^3/uL (4.8-10.8)
[2021-08-09 09:54] LABS: MICROALBUM/CREATININE RATIO,UR 2.5 ug/mg (<30.0); MICROALBUMIN,URINE 0.7 mg/dL (0-300.0)
[2021-08-09 09:56] LABS: ALBUMIN 4.6 g/dL (3.2-5.5); ALBUMIN/GLOBULIN RATIO 1.6 (1.0-2.2); ALKALINE PHOSPHATASE 45 IU/L (42-121); ALT ALANINE AMINOTRANSFERASE 46 IU/L (10-60); AST ASPARTATE AMINOTRANSFERASE 27 IU/L (10-42); BILIRUBIN,TOTAL 1.5 mg/dL (0.2-1.0); BUN - BLOOD UREA NITROGEN 16 mg/dL (6-20); CALCIUM 9.6 mg/dL (8.5-10.3); CARBON DIOXIDE - CO2 23 mmol/L (21-32); CHLORIDE 103 mmol/L (101-111); CHOLESTEROL 169 mg/dL; GFR - MDRD 75 (>89); GLUCOSE 201 mg/dL (70-100); HDL CHOLESTEROL 42 mg/dL; LDL CHOLESTEROL,CALCULATED 73 mg/dL; LDL/HDL RATIO 1.7 (<3.6); POTASSIUM 3.8 mmol/L (3.5-5.0); SODIUM 138 mmol/L (135-145); TOTAL PROTEIN 7.5 g/dL (6.7-8.2); TRIGLYCERIDES 271 mg/dL; VLDL CHOLESTEROL 54 mg/dL
[2021-08-09 10:07] LABS: THYROID STIMULATING HORMONE 1.07 uIU/mL (0.34-5.60)
[2021-08-09 10:56] LABS: ESTIMATED AVERAGE GLUCOSE 143 mg/dL (70-100); HEMOGLOBIN A1c% 6.6 % (4.27-6.07)
== END 2021-08-09 09:05 | disposition home or self-care (01) ==
LOC: LAB 09:04
PROVIDERS: ATTEND Physician Assistant Medical
DX: E11.9 Type 2 diabetes mellitus without complications (principal); Z12.5 Encounter for screening for malignant neoplasm of prostate; E04.9 Nontoxic goiter, unspecified; K21.9 Gastro-esophageal reflux disease without esophagitis
CPT/HCPCS: 36415; 80053; 80061; 82043; 82570; 83036; 84443; 85025; G0103; 83721; 84153

== ENCOUNTER 2021-11-26 08:00 | Outpatient (CLI) | payer MEDICARE, BC | END 2021-11-26 23:59 | LOC: LAB.N 08:00 | PROVIDERS: ATTEND Physician Assistant | DX: J32.8 Other chronic sinusitis (principal); Z20.822 Contact with and (suspected) exposure to COVID-19 ==

== ENCOUNTER 2021-12-22 13:31 | Outpatient (CLI) | payer MEDICARE, BC ==
--- NOTE | 2021-12-22 14:16 | SLEEP CARE CONSULTATION ---
Information from patient questionnaire entered by Jigna Estevze MA. I have reviewed and concur with the information entered by Jigna Estevez MA. This document represents the service I personally performed and the decisions made by , Radha Loya ARNP. History of Present Illness Service Date and Time: 12/22/2021 1331 Previous diagnosis: Moderate, Obstructive Sleep Apnea-Hypopnea Syndrome AHI: 22.0 Reason for follow up: other (8 MONTH F/U, MEDICARE COMPLIANCE, ) Equipment type: CPAP Equipment obtained from: [employer] (getting supplies as needed) Mask style: Nasal Backup mask available: Yes (old mask) Last cushion change: 3 weeks ago Prior sleep studies: Yes Year and Where: 2014 [facility] Type of Sleep Study: Polysomnography HPI additional information: IHSAN MYRICK was diagnosed to have moderate, AHI 22.0, obstructive sleep apnea-hypopnea syndrome and returned today for CPAP therapy first compliance after updating device follow-up. Sleep Study - Results Type of Sleep Study: Polysomnography Year and Where: 2014 [facility] CPAP Compliance Data - Data Reviewed with Patient Average duration of nightly device use: 9 HOURS 16 MINUTES Compliance rate %: 92.5 Current pressure setting (cmH2O): 16-17 Humidity settin Heated hose settin Average residual AHI: 3.9 Average large leak: 5 MINUTES 5 SECONDS Subjective Missed days of use due to: reports: travel (for ) Patient concerns: reports: dry mouth, nose, throat (oral venting). denies: aerophagia, mask discomfort, air blowing in eyes, mask leak noise, condensation in mask/hose, nasal congestion, epistaxis Observed to snore while using device: Yes (if on back only) Current pressure setting perceived as: comfortable On therapy, patient: reports: sleeping better, awakening more refreshed, being more awake and alert during the day, more rested overall. denies: drowsiness while driving Initial [place] Sleepiness Scale score: 11 (in 2014) Current [place] Sleepiness Scale score: 5 Allergies and Home Medications Home medication list reviewed: Yes (Lexapro increased to 30 mg) Allergy and home medication list: Allergies atorvastatin Allergy (Verified 06/17/19 17:11) Unknown morphine Allergy (Verified 01/10/16 05:05) Itching NSAIDS (Non-Steroidal Anti-Inflamma Allergy (Verified 01/10/16 05:05) Emesis sotalol HCl * [From Betapace] Allergy (Verified 01/10/16 05:05) Unknown Beta-Blockers (Beta-Adrenergic Bloc Adverse Reaction (Verified 02/13/17 07:33) Unknown Review of Systems Review of systems same as previous: Yes (no changes) Physical Exam Vital signs obtained and entered by: Agatha ESTEVEZ CMA AAJENNIE Blood Pressure: 127/76 (PULSE 67, RESP 18, LEFT ) Cuff size: wrist Heart Rate: 66 O2 Saturation: 97 (CLOTH MASK) Height: 5 ft 7 in Weight: 225 lb Weight change since last visit: 2 lb loss Body Mass Index: 35.2 BMI Classification: Obese Impression and Plan 1. Obstructive Sleep Apnea-Hypopnea Syndrome, moderate, with good treatment compliance and good apnea control. On CPAP therapy, the patient has better sleep quality and is more rested overall. Ihsan has had some mouth dryness and his has noted some snoring when using his CPAP. He is using a nasal cushion and may be oral venting which could explain his oral dryness and occasional snoring. His residual AHI is 3.9. I advised him to try using a chin strap to reduce oral venting and see if this reduces occasional snoring as well. He voiced understanding and agreement with plan. Patient has already registered their device for the recall. Patient denies any black particles seen in machine or hoses, any unusual odors coming from device. Patient has not experienced any physical symptoms such as upper airway irritation, headache, skin or eye irritation, asthma, nausea/vomiting, difficulty breathing or chest pain. If patient is not able to sleep due to waking up choking, gasping for air or other respiratory distress that they may decide to continue using it until it is either replaced or repaired. Since the patients current machine is at least 5 years old, the patient is opting to update their device with a device that is not on the recall. Patient voiced understanding and agreement with plan. Patient's apnea severity and rationale for treatment to reduce apnea, improve sleep quality and reduce cardiovascular and cerebrovascular events was reviewed. I also reviewed the benefit of consistent device use of CPAP for hypertension and cardiac disease. 2. Obesity, unspecified. Patient has lost weight. Currently patients BMI is 35.2. Obesity increases the risk of apnea, CPAP pressure requirements and overall health risks especially cardiovascular and diabetes. Thus patient is advised to continue to try to lose weight. * Continue auto CPAP pressure at 16-17 cmH2O * Update machine * Update supplies * Notify me if snoring with mask or feeling that the pressure is too much or too little * Continue to try to lose weight * Call this office if any problems using CPAP * Return for follow up one month after obtaining new device, or sooner if concerns arise Counseling Topics: Spare mask, Weight loss health impact Visit Type: In Office Time Spent with Patient (minutes): 20 Provider Statement: I spent 100% of the Face to Face Visit with the patient with greater than 50% spent counseling the patient and coordination of care.
[2021-12-22 14:17] VITALS: BP 127/76
== END 2021-12-22 13:32 | disposition home or self-care (01) ==
LOC: SC 13:31
PROVIDERS: ATTEND Nurse Practitioner Family
DX: G47.33 Obstructive sleep apnea (adult) (pediatric) (principal); E66.9 Obesity, unspecified; Z68.35 Body mass index [BMI] 35.0-35.9, adult
CPT/HCPCS: 99213; G0463; 99212

== ENCOUNTER 2022-01-31 08:00 | Outpatient (CLI) | payer MEDICARE, BC ==
--- NOTE | 2022-01-31 17:09 | XRAY Report ---
PROCEDURE: Abdomen 2 View X-Ray INDICATIONS: ABDOMINAL PX TECHNIQUE: 2 views of the abdomen were acquired. COMPARISON: None. FINDINGS: Surgical changes and devices: None. Bowel: No pneumoperitoneum. The bowel gas pattern is nonspecific with possible displacement of loop s of bowel by right abdominal mass. Soft tissues: No masses; visualized solid organ contours appear normal in size. No suspicious abdom inal calcifications. Bones: No suspicious bony abnormalities. IMPRESSION: Nonspecific bowel gas pattern with paucity of bowel gas in the right abdomen and possibl e displacement of loops of bowel by right abdominal mass. Recommend CT scan of the abdomen and pelvis for additional evaluation. Reviewed by: Rosi Fagan MD, PhD on 01/31/2022 5:08 PM PDT Approved by: Rosi Fagan MD, PhD on 01/31/2022 5:08 PM PDT Station ID: [id number]
[2022-01-31 18:23] LABS: BASOPHILS % (AUTO) 0.5 %; EOSINOPHILS # (AUTO) 0.1 10^3/uL (0.0-0.7); EOSINOPHILS % (AUTO) 1.4 %; HCT - HEMATOCRIT 41.9 % (42.0-52.0); HGB - HEMOGLOBIN 14.7 g/dL (14.0-18.0); LYMPHOCYTES # (AUTO) 2.2 10^3/uL (1.5-3.5); LYMPHOCYTES % (AUTO) 34.6 %; MEAN CORPUSCULAR HEMOGLOBIN 31.4 pg (27.0-31.0); MEAN CORPUSCULAR HGB CONC 35.1 g/dL (32.0-36.0); MEAN CORPUSCULAR VOLUME 89.5 fL (80.0-94.0); MEAN PLATELET VOLUME 10.2 fL (7.4-11.4); MONOCYTES # (AUTO) 0.4 10^3/uL (0.0-1.0); MONOCYTES % (AUTO) 7.1 %; NEUTROPHILS # (AUTO) 3.5 10^3/uL (1.5-6.6); NEUTROPHILS % (AUTO) 55.9 %; PLT - PLATELET COUNT 236 10^3/uL (130-450); RED BLOOD COUNT 4.68 10^6/uL (4.70-6.10); WHITE BLOOD COUNT 6.2 x10^3/uL (4.8-10.8)
[2022-01-31 18:25] LABS: BILIRUBIN,URINE NEGATIVE (NEGATIVE); GLUCOSE, URINE (UA) NEGATIVE (NEGATIVE); KETONES,URINE (UA) NEGATIVE (NEGATIVE); LEUKOCYTE ESTERASE, URINE NEGATIVE (NEGATIVE); NITRITE,URINE NEGATIVE (NEGATIVE); OCCULT BLOOD,URINE NEGATIVE (NEGATIVE); PROTEIN,URINE NEGATIVE (NEGATIVE); UROBILINOGEN,URINE 0.2 (NORMAL) E.U./dL (NORMAL)
[2022-01-31 18:34] LABS: CLARITY,URINE CLEAR (CLEAR)
[2022-01-31 19:20] LABS: BACTERIA,URINE None Seen /HPF (None Seen); RBC,URINE 0-5 /HPF (0-5); SQUAMOUS EPITHELIAL CELL,UR NONE SEEN (<= Few); WBC,URINE 0-3 /HPF (0-3)
[2022-01-31 19:30] LABS: ALBUMIN 4.6 g/dL (3.2-5.5); ALBUMIN/GLOBULIN RATIO 1.5 (1.0-2.2); ALKALINE PHOSPHATASE 45 IU/L (42-121); ALT ALANINE AMINOTRANSFERASE 62 IU/L (10-60); AST ASPARTATE AMINOTRANSFERASE 37 IU/L (10-42); BILIRUBIN,TOTAL 0.9 mg/dL (0.2-1.0); BUN - BLOOD UREA NITROGEN 18 mg/dL (6-20); CALCIUM 9.5 mg/dL (8.5-10.3); CARBON DIOXIDE - CO2 24 mmol/L (21-32); CHLORIDE 103 mmol/L (101-111); CHOL/HDL RATIO 4.1 (<5.0); CHOLESTEROL 157 mg/dL; CREATININE 1.1 mg/dL (0.6-1.2); GFR - MDRD 67 (>89); GLUCOSE 150 mg/dL (70-100); HDL CHOLESTEROL 38 mg/dL; LDL CHOLESTEROL,CALCULATED 70 mg/dL; LDL/HDL RATIO 1.8 (<3.6); LIPASE 36 U/L (22-51); POTASSIUM 3.9 mmol/L (3.5-5.0); SODIUM 137 mmol/L (135-145); TOTAL PROTEIN 7.6 g/dL (6.7-8.2); TRIGLYCERIDES 243 mg/dL; VLDL CHOLESTEROL 49 mg/dL
[2022-01-31 21:00] LABS: ESTIMATED AVERAGE GLUCOSE 160 mg/dL (70-100); HEMOGLOBIN A1c% 7.2 % (4.27-6.07)
== END 2022-01-31 23:59 | disposition home or self-care (01) ==
LOC: DI.N 08:00
PROVIDERS: ATTEND Physician Assistant Medical
DX: R10.31 Right lower quadrant pain (principal); E11.9 Type 2 diabetes mellitus without complications; R93.5 Abnormal findings on diagnostic imaging of other abdominal regions, including retroperitoneum
CPT/HCPCS: 36415; 80053; 80061; 81001; 83036; 83690; 83721; 85025; 87086

== ENCOUNTER 2022-02-07 12:11 | Outpatient (CLI) | payer MEDICARE, BC ==
[2022-02-07] MEDS ORDERED: IOVERSOL 320 50 ML VIAL ONE (12:43)
[2022-02-07] MEDS ORDERED: IOPAMIDOL-300 100 ML VIAL ONE (12:44)
[2022-02-07] MEDS ORDERED: IOPAMIDOL-300 100 ML VIAL IVP ONE (14:40)
--- NOTE | 2022-02-07 15:30 | CT Report ---
PROCEDURE: Abdomen/Pelvis W INDICATIONS: ABD PAIN CONTRAST: IV CONTRAST: Isovue 300 ml: 100 PO CONTRAST: Optiray 320 ml50 TECHNIQUE: After the administration of oral and intravenous contrast, 5 mm thick sections acquired from the diap hragms to the symphysis. 5 mm thick coronal and sagittal reformats were acquired. For radiation dos e reduction, the following was used: automated exposure control, adjustment of mA and/or kV accordin g to patient size. COMPARISON: CT abdomen and pelvis with, 12/25/2020. FINDINGS: Image quality: Excellent. ABDOMEN: Lung bases: Dependent atelectasis at the left lung base. Heart size is normal. Severe coronary kylah ry calcification. Mild concentric thickening of the distal esophagus. Solid organs: Mild hepatic steatosis. Liver and spleen are normal in size and enhancement. Gallbladd er is normal. Biliary system is non dilated. Pancreas enhances normally. No adrenal nodules. Kidn eys demonstrate normal size and enhancement, without hydronephrosis. Peritoneum and bowel: There are postsurgical changes related to gastroesophageal junction. Gastric c ardia appears mildly thickened (series 3 image 22). Bowel loops demonstrate normal wall thickness and caliber. Diverticulosis without diverticulitis. Normal appendix. No free fluid or air. Nodes and vessels: No retroperitoneal or mesenteric adenopathy by size criteria. Aorta and inferior vena cava are normal in size. Moderate aortic calcification. Miscellaneous: No ventral hernias. PELVIS: Genitourinary: Bladder wall thickness is normal. Mildly enlarged prostate. Miscellaneous: No inguinal hernias or adenopathy. Bones: No suspicious bony lesions. No vertebral body compression fractures. Degenerative changes a re noted in lower thoracic spine and lumbar spine. IMPRESSION: 1. Diverticulosis. No diverticulitis. 2. Hepatic steatosis. 3. Severe atherosclerotic calcification of coronary artery and moderate atherosclerotic calcification of the abdominal aorta. 4. Mild concentric thickening of the distal esophagus. There is postsurgical changes at the GE juncti on. The gastric cardia appears mildly thickened. Recommend upper GI series or upper endoscopy for fol low-up evaluation. Reviewed by: Matthew Cox MD on 02/07/2022 3:29 PM PDT Approved by: Matthew Cox MD on 02/07/2022 3:29 PM PDT Station ID: [id number]
== END 2022-02-07 12:12 | disposition home or self-care (01) ==
LOC: DI 12:11
PROVIDERS: ATTEND Family Medicine
DX: K57.90 Diverticulosis of intestine, part unspecified, without perforation or abscess without bleeding (principal); K76.0 Fatty (change of) liver, not elsewhere classified; I25.10 Atherosclerotic heart disease of native coronary artery without angina pectoris; R93.3 Abnormal findings on diagnostic imaging of other parts of digestive tract
CPT/HCPCS: 74177; Q9967

== ENCOUNTER 2022-06-22 06:28 | Day surgery (SDC) | payer MEDICARE, BC ==
[2022-06-22] MEDS ORDERED: LACTATED RINGERS 1,000 ML IV ONE (06:46)
--- NOTE | 2022-06-22 07:08 | ANESTHESIA ---
Pre-Anesthesia VS, & Labs - Diagnosis gerd, screening - Procedure EGD, colonoscopy Vital Signs: Temp Pulse Resp BP Pulse Ox 36.0 C L 61 16 142/79 H 96 06/22/22 06:47 06/22/22 06:47 06/22/22 06:47 06/22/22 06:47 06/22/22 06:47 Height: 5 ft 7 in Weight (kg): 102.1 kg Body Mass Index: 35.2 BMI Classification: Obese - NPO >8 hours - Lab Results Current Lab Results: Laboratory Tests 06/22/22 06:55: POC Whole Bld Glucose 170 H Home Medications and Allergies Home Medications: Ambulatory Orders Fenofibrate Nanocrystallized [Tricor] 145 mg PO DAILY 06/17/22 Fexofenadine [Ximena] 180 mg PO DAILY 06/17/22 Fluticasone [Flonase] 1 sprays CED BID PRN 06/17/22 HYDROcodone/ACET 7.5/325 [[place]arrison 7.5/325] 1 each PO BID PRN 06/17/22 Magnesium Oxide 400 mg PO QPM 06/17/22 hydrOXYzine HCL [Hydroxyzine HCl] 25 mg PO TID PRN 06/17/22 tiZANidine [Zanaflex] 4 mg PO Q8H PRN 06/17/22 Atorvastatin [Lipitor] 40 mg PO QPM 01/10/16 Escitalopram Oxalate [Lexapro] 30 mg PO QPM 01/10/16 Finasteride 5 mg PO QPM 01/10/16 Losartan [Cozaar] 50 mg PO BID 01/10/16 Tamsulosin [Flomax] 0.4 mg PO QPM 01/10/16 metFORMIN [Glucophage] 1,000 mg PO BID 01/10/16 Apixaban [Eliquis] 5 mg PO BID 02/10/17 Glipizide [Glipizide ER] 5 mg PO BID 02/13/17 diltiaZEM [Cardizem] 120 mg PO BID 02/13/17 Fenofibrate Nanocrystallized [Tricor] 145 mg PO DAILY 06/17/22 Fexofenadine [Ximena] 180 mg PO DAILY 06/17/22 Fluticasone [Flonase] 1 sprays CED BID PRN 06/17/22 HYDROcodone/ACET 7.5/325 [[place] 7.5/325] 1 each PO BID PRN 06/17/22 Magnesium Oxide 400 mg PO QPM 06/17/22 hydrOXYzine HCL [Hydroxyzine HCl] 25 mg PO TID PRN 06/17/22 tiZANidine [Zanaflex] 4 mg PO Q8H PRN 06/17/22 Allergies/Adverse Reactions: Allergies Allergy/AdvReac Type Severity Reaction Status Date / Time aripiprazole Allergy mouth rash Verified 06/22/22 06:32 latex Allergy Itching Verified 06/22/22 06:32 morphine Allergy Itching, Verified 06/22/22 06:32 rash NSAIDS (Non-Steroidal Allergy Emesis Verified 06/22/22 06:32 Anti-Inflamma sotalol HCl * [From Betapace] Allergy fatigue, Verified 06/22/22 06:32 ocular migraines Beta-Blockers AdvReac fatigue Verified 06/22/22 06:32 (Beta-Adrenergic Bloc Anes History & Medical History - Anesthetic History Anesthesia Complications: reports: No previous complications - Medical History Cardiovascular: reports: Hypertension, High cholesterol, Atrial fibrillation Pulmonary: reports: Sleep apnea, CPAP use Gastrointestinal: reports: Ulcers, Colon polyps, Other Urinary: reports: Benign prostate hypertrophy Musculoskeletal: reports: Osteoarthritis, Chronic back pain Endocrine/Autoimmune: reports: None, Type 2 diabetes Skin: reports: None Smoking Status: Never smoker - Surgical History General: reports: Colonoscopy, EGD Cardiothoracic: reports: Other Orthopedic: reports: Spine surgery, Other Exam General: Alert Dental: WNL Mallampati classification: III Thyromental Distance: greater than 6 cm Respiratory: Lungs clear Cardiovascular: Regular rate Plan Anesthesia Type: Total IV Consent for Procedure(s) Verified and Reviewed: Yes Code Status: Attempt Resuscitation ASA classification: 3-Severe systemic disease Is this case an emergency?: No
[2022-06-22] MEDS ORDERED: LIDOCAINE-MPF 2% 5 ML VIAL ONE (07:42)
[2022-06-22] MEDS ORDERED: PROPOFOL 500 MG/50 ML 500 MG/50 ML VIAL ONE (07:42)
[2022-06-22] MEDS ORDERED: LACTATED RINGERS 700 ML IV ONE (08:19)
--- NOTE | 2022-06-22 08:34 | ANESTHESIA POST OP EVALUATION ---
Anesthesia Post Eval - Post Anesthesia Eval Vitals: Last Vital Signs Temp 36.4 C L 06/22/22 08:19 Pulse 52 L 06/22/22 08:30 Resp 14 06/22/22 08:30 BP 109/64 06/22/22 08:30 Pulse Ox 96 06/22/22 08:30 CV Function Including HR & BP: Stable Pain Control: Satisfactory Nausea & Vomiting: Negative Mental Status: Baseline, Patient Participates Respiratory Status: Airway Patent Hydration Status: Satisfactory Anesthesia Complications: None
[2022-06-22 08:55] VITALS: BP 122/73
== END 2022-06-22 06:29 | disposition home or self-care (01) ==
LOC: SDS 06:28
PROVIDERS: ATTEND Surgery
PROC: 0DBH8ZX Excision of Cecum, Via Natural or Artificial Opening Endoscopic, Diagnostic (ICD-10-PCS; principal; 2022-06-22 07:30)
DX: Z12.11 Encounter for screening for malignant neoplasm of colon (principal); D12.0 Benign neoplasm of cecum; K22.89 Other specified disease of esophagus; K64.8 Other hemorrhoids; R93.3 Abnormal findings on diagnostic imaging of other parts of digestive tract; E11.9 Type 2 diabetes mellitus without complications; E66.9 Obesity, unspecified; I10 Essential (primary) hypertension; Z68.35 Body mass index [BMI] 35.0-35.9, adult; Z79.84 Long term (current) use of oral hypoglycemic drugs
CPT/HCPCS: 43235; 45380; J7120

== ENCOUNTER 2022-08-05 11:29 | Outpatient (CLI) | payer MEDICARE, BC ==
[2022-08-05 12:19] LABS: ALBUMIN 4.4 g/dL (3.2-5.5); ALBUMIN/GLOBULIN RATIO 1.5 (1.0-2.2); ALKALINE PHOSPHATASE 35 IU/L (42-121); ALT ALANINE AMINOTRANSFERASE 59 IU/L (10-60); AST ASPARTATE AMINOTRANSFERASE 35 IU/L (10-42); BILIRUBIN,TOTAL 0.9 mg/dL (0.2-1.0); BUN - BLOOD UREA NITROGEN 19 mg/dL (6-20); CALCIUM 9.9 mg/dL (8.5-10.3); CARBON DIOXIDE - CO2 25 mmol/L (21-32); CHLORIDE 105 mmol/L (101-111); CHOL/HDL RATIO 3.9 (<5.0); CHOLESTEROL 147 mg/dL; CREATININE 1.1 mg/dL (0.6-1.2); GFR - MDRD 67 (>89); GLUCOSE 177 mg/dL (70-100); HDL CHOLESTEROL 38 mg/dL; LDL CHOLESTEROL,CALCULATED 74 mg/dL; LDL/HDL RATIO 1.9 (<3.6); SODIUM 138 mmol/L (135-145); TOTAL PROTEIN 7.3 g/dL (6.7-8.2); TRIGLYCERIDES 175 mg/dL; VLDL CHOLESTEROL 35 mg/dL
[2022-08-05 12:24] LABS: ESTIMATED AVERAGE GLUCOSE 151 mg/dL (70-100); HEMOGLOBIN A1c% 6.9 % (4.27-6.07)
[2022-08-05 12:27] LABS: THYROID STIMULATING HORMONE 1.12 uIU/mL (0.34-5.60)
== END 2022-08-05 11:30 | disposition home or self-care (01) ==
LOC: LAB 11:29
PROVIDERS: ATTEND Physician Assistant Medical
DX: E11.9 Type 2 diabetes mellitus without complications (principal); N40.0 Benign prostatic hyperplasia without lower urinary tract symptoms; E04.9 Nontoxic goiter, unspecified
CPT/HCPCS: 36415; 80053; 80061; 83036; 83721; 84153; 84443

== ENCOUNTER 2022-12-29 14:14 | Outpatient (CLI) | payer MEDICARE, BC ==
[2022-12-29 14:47] VITALS: BP 128/62
--- NOTE | 2022-12-29 14:47 | SLEEP CARE CONSULTATION ---
Information from patient questionnaire entered by Bean Allen. I have reviewed and concur with the information entered by Bean Allen. This document represents the service I personally performed and the decisions made by me, Radha Loya ARNP. History of Present Illness Service Date and Time: 12/29/2022 1414 Previous diagnosis: Moderate, Obstructive Sleep Apnea-Hypopnea Syndrome AHI: 22.0 Reason for follow up: annual (LAST SEEN 12/2021) Equipment type: CPAP (CHAPIN Dreamstation 2) Equipment obtained from: [employer] (getting supplies as needed) Mask style: Nasal Mask brand: Resmed Backup mask available: Yes (old mask) Last cushion change: 2 weeks Prior sleep studies: Yes Year and Where: [address] [facility] [place] [facility] Type of Sleep Study: Polysomnography HPI additional information: IHSAN MYRICK was diagnosed to have moderate, AHI 22.0, obstructive sleep apnea-hypopnea syndrome and returned today for CPAP therapy annual follow-up. Sleep Study - Results Type of Sleep Study: Polysomnography Prior sleep studies: Yes Year and Where: [address] [facility] CPAP Compliance Data - Data Reviewed with Patient Average duration of nightly device use: 9 HRS 50 MIN Compliance rate %: 91.7 (06/30/22-12/26/22; 165/180 days used) Current pressure setting (cmH2O): 16-17 Average residual AHI: 5.3 Central apnea: 1.4 Obstructive apnea: 1.8 Hypopnea: 2.1 Average large leak: 11 secs Subjective Missed days of use due to: reports: travel (forgot at daughter's house) Patient concerns: reports: dry mouth, nose, throat (dry mouth, occasional; tried a chin strap). denies: aerophagia, mask discomfort, air blowing in eyes, mask leak noise, condensation in mask/hose, nasal congestion, epistaxis Observed to snore while using device: Yes Current pressure setting perceived as: comfortable On therapy, patient: reports: sleeping better, awakening more refreshed, being more awake and alert during the day, more rested overall. denies: drowsiness while driving Initial Hodge Sleepiness Scale score: 11 (in 2014) Current Hodge Sleepiness Scale score: 7 (12/29/22) Allergies and Home Medications Known drug allergies: Yes (as listed) Drug allergies reviewed: Yes Home medication list reviewed: Yes (no changes) Allergy and home medication list: Allergies aripiprazole Allergy (Verified 12/28/22 14:56) mouth rash latex Allergy (Verified 12/28/22 14:56) Itching morphine Allergy (Verified 12/28/22 14:56) Itching, rash NSAIDS (Non-Steroidal Anti-Inflamma Allergy (Verified 12/28/22 14:56) Emesis ulcer history sotalol HCl * [From Betapace] Allergy (Verified 12/28/22 14:56) fatigue, ocular migraines Beta-Blockers (Beta-Adrenergic Bloc Adverse Reaction (Verified 12/28/22 14:56) fatigue Review of Systems Review of systems same as previous: Yes (no changes) Physical Exam Vital signs obtained and entered by: BEAN Ivan MA Blood Pressure: 128/62 (LEFT ARM) Cuff size: regular Heart Rate: 72 O2 Saturation: 96 Height: 5 ft 7 in Weight: 226 lb 12.8 oz Weight change since last visit: 1 lb loss Body Mass Index: 35.5 BMI Classification: Obese Impression and Plan 1. Obstructive Sleep Apnea-Hypopnea Syndrome, moderate, with good treatment compliance and good apnea control. On CPAP therapy, the patient has better sleep quality and is more rested overall. Patient has significant improvement of their sleep apnea and is satisfied with current CPAP therapy. His residual AHI is now only elevated patient is very comfortable with current settings to monitor his AHI and report if it seems to trend upward. He is still getting good results at this time so we will just monitor. Patient has been having some dry mouth and his is complaining of some snoring at night. He has tried a chinstrap but it is just more straps on his head. I encouraged him to try mouth strips for snoring that he can get at the pharmacy to keep his mouth closed. Preventing oral venting will reduce oral dryness and snoring sounds. He voiced understanding and agreement. Patient's apnea severity and rationale for treatment to reduce apnea, improve sleep quality and reduce cardiovascular and cerebrovascular events was reviewed. I also reviewed the benefit of consistent d evice use of CPAP for hypertension and cardiac disease. 2. Obesity, unspecified. Currently patients BMI is 35.5. Obesity increases the risk of apnea, CPAP pressure requirements and overall health risks especially cardiovascular and diabetes. Thus patient is advised to lose weight. * Continue auto CPAP pressure at 16-17 cmH2O * Update supplies * Notify me if snoring with mask or feeling that the pressure is too much or too little * Attempt to lose weight * Call this office if any problems using CPAP * Return for follow up in 1 year, or sooner if concerns arise Counseling Topics: Spare mask, Weight loss health impact Visit Type: In Office Time Spent with Patient (minutes): 22 Provider Statement: I spent 100% of the Face to Face Visit with the patient with greater than 50% spent counseling the patient and coordination of care.
== END 2022-12-29 14:15 | disposition home or self-care (01) ==
LOC: SC 14:14
PROVIDERS: ATTEND Nurse Practitioner Family
DX: G47.33 Obstructive sleep apnea (adult) (pediatric) (principal); E66.9 Obesity, unspecified; Z68.35 Body mass index [BMI] 35.0-35.9, adult
CPT/HCPCS: 99213; G0463; 99212

== ENCOUNTER 2023-01-13 12:28 | Outpatient (CLI) | payer MEDICARE, BC ==
--- NOTE | 2023-01-13 15:43 | Ultrasound Report ---
PROCEDURE: Testicle INDICATIONS: SCROTAL PAIN TECHNIQUE: Real-time scanning was performed of the scrotum and testicles, with image documentation. Color and p ulse Doppler interrogation was performed of both testicles. COMPARISON: None. FINDINGS: Right: Testicle is normal in size at 5.5 x 3.5 x 2.6 cm, and homogenous in echotexture. Epididymal h ead cyst is present measuring 4 x 3 x 7 mm. No hydrocele or varicoceles. Overlying scrotal skin is n ormal in thickness. Appearance of testicular appendix versus marvin is noted. Left: Testicle is normal in size at 6.0 x 3.7 x 3.0 cm, and homogeneous in echotexture. Epididymal c yst is present measuring 7 x 6 x 4 mm. No hydrocele. There is presence of varicoceles. Overlying scr otal skin is normal in thickness. Appearance of small testicular marvin is noted. Doppler: Color and pulse Doppler demonstrate normal and symmetric arterial flow in both testicles. IMPRESSION: Prominent right hydrocele. Bilateral varicoceles. Bilateral epididymal cysts. No torsion at time of exam. Intermittent torsion cannot be excluded. Reviewed by: Carlyn Almeida MD on 01/13/2023 3:42 PM PDT Approved by: Carlyn Almeida MD on 01/13/2023 3:42 PM PDT Station ID: [id number]
== END 2023-01-13 12:29 | disposition home or self-care (01) ==
LOC: DI 12:28
PROVIDERS: ATTEND Urology
DX: N43.3 Hydrocele, unspecified (principal); I86.1 Scrotal varices; N50.3 Cyst of epididymis

== ENCOUNTER 2023-02-01 10:54 | Outpatient (CLI) | payer MEDICARE, BC ==
[2023-02-01 11:25] LABS: ALBUMIN 4.3 g/dL (3.2-5.5); ALBUMIN/GLOBULIN RATIO 1.5 (1.0-2.2); ALKALINE PHOSPHATASE 43 IU/L (42-121); ALT ALANINE AMINOTRANSFERASE 59 IU/L (10-60); AST ASPARTATE AMINOTRANSFERASE 35 IU/L (10-42); BUN - BLOOD UREA NITROGEN 17 mg/dL (6-20); CALCIUM 9.4 mg/dL (8.5-10.3); CARBON DIOXIDE - CO2 28 mmol/L (21-32); CHLORIDE 103 mmol/L (101-111); CHOL/HDL RATIO 4.2 (<5.0); CHOLESTEROL 147 mg/dL; CREATININE 1.1 mg/dL (0.6-1.2); GFR - MDRD 67 (>89); GLUCOSE 195 mg/dL (70-100); HDL CHOLESTEROL 35 mg/dL; LDL CHOLESTEROL,CALCULATED 64 mg/dL; LDL/HDL RATIO 1.8 (<3.6); POTASSIUM 4.1 mmol/L (3.5-5.0); SODIUM 138 mmol/L (135-145); TOTAL PROTEIN 7.1 g/dL (6.7-8.2); TRIGLYCERIDES 238 mg/dL; VLDL CHOLESTEROL 48 mg/dL
[2023-02-01 12:36] LABS: ESTIMATED AVERAGE GLUCOSE 160 mg/dL (70-100); HEMOGLOBIN A1c% 7.2 % (4.27-6.07)
== END 2023-02-01 10:55 | disposition home or self-care (01) ==
LOC: LAB 10:54
PROVIDERS: ATTEND Physician Assistant Medical
DX: F32.A Depression, unspecified (principal); E11.9 Type 2 diabetes mellitus without complications
CPT/HCPCS: 36415; 80053; 80061; 83036; 83721; 84403

== ENCOUNTER 2023-02-06 10:34 | Outpatient (CLI) | payer MEDICARE, BC ==
[2023-02-06 11:33] LABS: PSA TOTAL 0.529 ng/mL (0.000-2.000)
== END 2023-02-06 10:35 | disposition home or self-care (01) ==
LOC: LAB 10:34
PROVIDERS: ATTEND Urology
DX: Z12.5 Encounter for screening for malignant neoplasm of prostate (principal)
CPT/HCPCS: 36415; 84153

== ENCOUNTER 2023-03-07 13:24 | Outpatient (CLI) | payer MEDICARE, BC ==
[2023-03-07 14:24] LABS: PSA FREE 0.154 ng/mL (0.16-2.81)
[2023-03-07 14:25] LABS: PSA TOTAL 0.516 ng/mL (0.000-2.000)
== END 2023-03-07 13:25 | disposition home or self-care (01) ==
LOC: LAB 13:24
PROVIDERS: ATTEND Physician Assistant Medical
DX: Z12.5 Encounter for screening for malignant neoplasm of prostate (principal)
CPT/HCPCS: 36415; 84153; 84154

== ENCOUNTER 2023-08-04 08:40 | Outpatient (CLI) | payer MEDICARE, BC ==
[2023-08-04 09:13] LABS: ALBUMIN 4.7 g/dL (3.2-5.5); ALBUMIN/GLOBULIN RATIO 1.9 (1.0-2.2); ALKALINE PHOSPHATASE 43 IU/L (42-121); ALT ALANINE AMINOTRANSFERASE 45 IU/L (10-60); AST ASPARTATE AMINOTRANSFERASE 26 IU/L (10-42); BILIRUBIN,TOTAL 0.7 mg/dL (0.2-1.0); BUN - BLOOD UREA NITROGEN 20 mg/dL (6-20); CARBON DIOXIDE - CO2 31 mmol/L (21-32); CHLORIDE 104 mmol/L (101-111); CHOL/HDL RATIO 4.1 (<5.0); CHOLESTEROL 150 mg/dL; CREATININE 1.2 mg/dL (0.6-1.3); GFR - MDRD 61 (>89); GLUCOSE 162 mg/dL (74-104); HDL CHOLESTEROL 37 mg/dL; LDL CHOLESTEROL,CALCULATED 66 mg/dL; LDL/HDL RATIO 1.8 (<3.6); POTASSIUM 4.2 mmol/L (3.5-4.5); SODIUM 139 mmol/L (135-145); TOTAL PROTEIN 7.2 g/dL (6.4-8.9); TRIGLYCERIDES 235 mg/dL (48-352); VLDL CHOLESTEROL 47 mg/dL
[2023-08-04 12:22] LABS: ESTIMATED AVERAGE GLUCOSE 146 mg/dL (70-100); HEMOGLOBIN A1c% 6.7 % (4.27-6.07)
== END 2023-08-04 08:41 | disposition home or self-care (01) ==
LOC: LAB 08:40
PROVIDERS: ATTEND Physician Assistant Medical
DX: F32.A Depression, unspecified (principal); E11.9 Type 2 diabetes mellitus without complications
CPT/HCPCS: 36415; 80053; 80061; 83036; 83721; 84403

== ENCOUNTER 2023-11-08 08:00 | Outpatient (CLI) | payer MEDICARE, BC | END 2023-11-08 08:01 | disposition home or self-care (01) | LOC: LAB.N 08:00 | PROVIDERS: ATTEND Physician Assistant Medical | DX: J06.9 Acute upper respiratory infection, unspecified (principal) ==

== ENCOUNTER 2023-11-23 12:47 | Outpatient (CLI) | payer MEDICARE, BC ==
--- NOTE | 2023-11-23 18:09 | MRI Report ---
PROCEDURE: Lumbar Spine WO INDICATIONS: SPINAL STENOSIS TECHNIQUE: Noncontrast sagittal T1 spin echo and T2 fast echo, sagittal STIR, axial T1 and T2 fast spin echo thr ough the lumbar spine. In cases with scoliosis, additional coronal T2 fast spin echo may be performe d. COMPARISON: 10/28/2019, 12/27/2018, 01/29/2018 FINDINGS: Image quality: Diagnostic. Alignment and Curvature: There is normal bony alignment. Bone Marrow: Marrow is of normal overall signal. Scattered foci of T1-weighted hyperintensity and T 2-weighted hyperintensity are seen, without increased STIR signal. These foci are attributed to benig n vertebral body hemangiomas. No acute vertebral body compression fractures. Spinal Cord: Conus medullaris terminates at the L1 level. Visualized cord demonstrates normal signa l and size. Paraspinous Soft Tissues: No paravertebral masses. T12-L1: Normal in appearance. L1-L2: Normal in appearance. L2-L3: The disc height is well-preserved. There is loss of disc signal seen. Moderate disc bulge is seen at this level. Mild to moderate facet hypertrophy can be seen. There is at least moderate b ilateral neuroforaminal narrowing, right worse than left. Mild central canal narrowing is seen. Ther e is mild progression compared to the prior. L3-L4: Mild to moderate loss of disc height and disc signal can be seen. At least moderate disc bul ge is seen. A superimposed central disc protrusion is seen. Mild facet hypertrophy is seen. Modera te to severe bilateral neural foraminal narrowing can be seen, with associated compression upon the e xiting nerve roots. Moderate central canal narrowing is seen. These degenerative changes have prog ressed when compared to the prior examination. L4-L5: Mild loss of disc height and disc signal are seen. Moderate disc bulge is seen, which is ecc entric to the right side. Moderate facet hypertrophy is seen. Moderate to severe bilateral neurofora rose marie narrowing can be seen, left worse than right. Compression is seen upon the exiting nerve roots. Mild central canal narrowing is seen. These degenerative changes are slightly worse than in 2020. L5-S1: Mild loss of disc height and disc signal are seen. Moderate disc bulge is seen at this leve l. A superimposed central disc protrusion is seen. Note is made of an annular fissure posteriorly. M oderate facet hypertrophy is seen. There is at least moderate bilateral neuroforaminal narrowing seen , right worse than left. Compression is seen upon the exiting nerve roots. No significant central can al narrowing is seen. At this level, there was previously seen a central/left disc extrusion. This is no longer seen. Interval left hemilaminectomy change can be seen. IMPRESSION: Interval postoperative change at L5-S1, with resolution of the previously seen disc extrusion. Multiple levels of lumbar spine degenerative change can be seen elsewhere, which have overall progres sed compared to 2020. Reviewed by: Pro Kemp MD on 11/23/2023 5:08 PM [place] Approved by: Pro Kemp MD on 11/23/2023 5:08 PM [place] Station ID: [id number]
== END 2023-11-23 12:48 | disposition home or self-care (01) ==
LOC: DI 12:47
PROVIDERS: ATTEND Anesthesiology Pain Medicine
DX: M51.36 Other intervertebral disc degeneration, lumbar region (principal); M48.061 Spinal stenosis, lumbar region without neurogenic claudication; M47.816 Spondylosis without myelopathy or radiculopathy, lumbar region; M51.26 Other intervertebral disc displacement, lumbar region; M51.27 Other intervertebral disc displacement, lumbosacral region; M51.37 Other intervertebral disc degeneration, lumbosacral region; M48.07 Spinal stenosis, lumbosacral region; M47.27 Other spondylosis with radiculopathy, lumbosacral region

== ENCOUNTER 2024-01-02 12:45 | Outpatient (CLI) | payer MEDICARE, BC ==
--- NOTE | 2024-01-02 13:20 | Sleep Patient Instructions ---
Sleep Center Visit Summary - Patient Visit Information Reason for Visit: Annual Follow up - Patient Instructions Additional Instructions: You will continue with CPAP therapy with pressure set at 16-17 cmH2O. A supply prescription will be updated with your DME. We encourage you to continue to try to lose weight. Please follow up with the sleep care office in 1 year. - Clinic Information Contact: Merged with [facility] [address] [place] [address] [email or web address] T: [phone]
--- NOTE | 2024-01-02 13:29 | SLEEP CARE CONSULTATION ---
Information from patient questionnaire entered by Leslie Allen. I have reviewed and concur with the information entered by Leslie lAlen. This document represents the service I personally performed and the decisions made by me, Radha Loya ARNP. History of Present Illness Service Date and Time: 01/02/2024 1245 Previous diagnosis: Moderate, Obstructive Sleep Apnea-Hypopnea Syndrome AHI: 22.0 (2014) Reason for follow up: annual (LAST SEEN 12/2022) Equipment type: CPAP (CHAPIN Dreamstation 2) Equipment obtained from: [employer] (getting supplies as needed) Mask style: Nasal pillows Mask brand: Resmed Backup mask available: Yes Last cushion change: last monday Prior sleep studies: Yes Year and Where: 2014 [facility] Type of Sleep Study: Polysomnography HPI additional information: IHSAN MYRICK was diagnosed to have moderate, AHI 22, obstructive sleep apnea- hypopnea syndrome and returned today for CPAP therapy annual follow-up. Sleep Study - Results Type of Sleep Study: Polysomnography Prior sleep studies: Yes Year and Where: 2014 [facility] CPAP Compliance Data - Data Reviewed with Patient Average duration of nightly device use: 9 HRS 28 MINS 21 SECS Compliance rate %: 99.7 (12/28/22-12/27/23; 364/365 days used) Current pressure setting (cmH2O): 16-17 (avg 17) Average residual AHI: 7.4 Central apnea: 1.9 Obstructive apnea: 2.7 Hypopnea: 2.8 Average large leak: 28 secs Subjective Patient concerns: reports: dry mouth, nose, throat (dry mouth/throat; most mornings, oral venting possibly). denies: aerophagia, mask discomfort, air blowing in eyes, mask leak noise, condensation in mask/hose, nasal congestion, epistaxis Observed to snore while using device: Yes (if on his back) Current pressure setting perceived as: comfortable On therapy, patient: reports: sleeping better, awakening more refreshed, being more awake and alert during the day, more rested overall. denies: drowsiness while driving Initial Bena Sleepiness Scale score: 11 (in 2014) Current Bena Sleepiness Scale score: 6 (01/02/24) Allergies and Home Medications Known drug allergies: Yes (as listed) Drug allergies reviewed: Yes Home medication list reviewed: Yes (stopped Rodney'osvaldo Child) Allergy and home medication list: Allergies aripiprazole Allergy (Verified 12/29/23 13:40) mouth rash latex Allergy (Verified 12/29/23 13:40) Itching morphine Allergy (Verified 12/29/23 13:40) Itching, rash NSAIDS (Non-Steroidal Anti-Inflamma Allergy (Verified 12/29/23 13:40) Emesis ulcer history sotalol HCl * [From Betapace] Allergy (Verified 12/29/23 13:40) fatigue, ocular migraines Beta-Blockers (Beta-Adrenergic Bloc Adverse Reaction (Verified 12/29/23 13:40) fatigue Review of Systems Review of systems same as previous: Yes (NO CHANGE) Physical Exam Vital signs obtained and entered by: LESLIE Ivan MA Blood Pressure: 139/75 (LEFT ARM) Cuff size: regular Heart Rate: 81 O2 Saturation: 97 Height: 5 ft 7 in Weight: 222 lb Weight change since last visit: 4 lb loss Body Mass Index: 34.7 BMI Classification: Obese Impression and Plan 1. Obstructive Sleep Apnea-Hypopnea Syndrome, moderate, with good treatment compliance and fair apnea control with mildly elevated residual AHI. On CPAP therapy, the patient has better sleep quality and is more rested overall. I discussed with patient that his residual AHI is more elevated than it was last year. He states he cannot tolerate more pressure because they have tried in the past and it is just too much for him. I offered to have him do a titration study to see if we can get a better idea of what pressure would be more optimal and he did like the idea. But he then started asking about the Inspire implantable sleep apnea device. He was informed that they would have to qualify for this type of therapy. A referral is needed for an ENT specialist who would evaluate if Inspire therapy is indeed right for them. Qualifications to be evaluated for Inspire therapy include a previous diagnosis of moderate to severe obstructive sleep apnea. They must also have tried, failed or have been unable to tolerate CPAP treatment. They should also have a BMI of 32 or less and do not have any other active implantable devices present (like a pacemaker). Patient will need to undergo a sleep endoscopy where they are put under light sedation and the airway is examined by an endoscope to determine the cause of their sleep apnea. If it is determined that Inspire therapy is right for him than he may proceed to implantation. I will place a referral for an evaluation for the Inspire implant as requested by patient. I will not order a titration study unless he decides to continue with CPAP instead of going for the Inspire implantable therapy. He may return here for another sleep study also since his last sleep study was in 2014 and he will probably need an updated study completed. He voiced understanding and agreement with this plan of care. Patient's apnea severity and rationale for treatment to reduce apnea, improve sleep quality and reduce cardiovascular and cerebrovascular events was reviewed. I also reviewed the benefit of consistent device use of CPAP for hypertension, cardiac disease. 2. Obesity, unspecified. Currently patients BMI is 34.7. He has been losing weight. Obesity increases the risk of apnea, CPAP pressure requirements and overall health risks especially cardiovascular and diabetes. Thus patient is advised to continue to try to lose weight. * Continue auto CPAP pressure at 16-17 cmH2O * Referral for Inspire Implant evaluation and treatment * Update supply prescription * Notify me if snoring with mask or feeling that the pressure is too much or too little * Attempt to lose weight * Call this office if any problems using CPAP * Return for follow up in 12 months, or sooner if concerns arise Counseling Topics: Spare mask, Weight loss health impact Prescriptions: Device supplies, Other (Referral for Inspire Implant) Follow up with Sleep Care in: 1 year Visit Type: In Office Time Spent with Patient (minutes): 26 Provider Statement: I spent 100% of the Face to Face Visit with the patient with greater than 50% spent counseling the patient and coordination of care.
[2024-01-02 13:55] VITALS: BP 139/75; O2SAT 97
== END 2024-01-02 12:46 | disposition home or self-care (01) ==
LOC: SC 12:45
PROVIDERS: ATTEND Nurse Practitioner Family
DX: G47.33 Obstructive sleep apnea (adult) (pediatric) (principal); E66.9 Obesity, unspecified; Z68.34 Body mass index [BMI] 34.0-34.9, adult
CPT/HCPCS: 99213; G0463; 99212

== ENCOUNTER 2024-01-26 09:35 | Outpatient (CLI) | payer MEDICARE, BC ==
[2024-01-26 10:10] LABS: ALBUMIN 4.4 g/dL (3.2-5.5); ALBUMIN/GLOBULIN RATIO 1.8 (1.0-2.2); ALKALINE PHOSPHATASE 36 IU/L (42-121); ALT ALANINE AMINOTRANSFERASE 39 IU/L (10-60); AST ASPARTATE AMINOTRANSFERASE 25 IU/L (10-42); BILIRUBIN,TOTAL 0.6 mg/dL (0.2-1.0); BUN - BLOOD UREA NITROGEN 17 mg/dL (6-20); CALCIUM 10.2 mg/dL (8.5-10.3); CARBON DIOXIDE - CO2 29 mmol/L (21-32); CHLORIDE 104 mmol/L (101-111); CHOL/HDL RATIO 3.5 (<5.0); CHOLESTEROL 147 mg/dL; CREATININE 1.1 mg/dL (0.6-1.3); GFR - MDRD 67 (>89); GLUCOSE 174 mg/dL (74-104); HDL CHOLESTEROL 42 mg/dL; LDL CHOLESTEROL,CALCULATED 64 mg/dL; LDL/HDL RATIO 1.5 (<3.6); POTASSIUM 4.2 mmol/L (3.5-4.5); SODIUM 138 mmol/L (135-145); TOTAL PROTEIN 6.8 g/dL (6.4-8.9); TRIGLYCERIDES 203 mg/dL (48-352); VLDL CHOLESTEROL 41 mg/dL
[2024-01-26 12:19] LABS: ESTIMATED AVERAGE GLUCOSE 171 mg/dL (70-100); HEMOGLOBIN A1c% 7.6 % (4.27-6.07)
== END 2024-01-26 09:36 | disposition home or self-care (01) ==
LOC: LAB 09:35
PROVIDERS: ATTEND Internal Medicine Cardiovascular Disease
DX: E11.9 Type 2 diabetes mellitus without complications (principal); N40.0 Benign prostatic hyperplasia without lower urinary tract symptoms; E29.1 Testicular hypofunction; I48.0 Paroxysmal atrial fibrillation; I25.10 Atherosclerotic heart disease of native coronary artery without angina pectoris; I25.84 Coronary atherosclerosis due to calcified coronary lesion
CPT/HCPCS: 36415; 80053; 80061; 83036; 83721; 84153; 84154; 84403

== ENCOUNTER 2024-05-22 11:15 | Outpatient (CLI) | payer MEDICARE, BC ==
[2024-05-22 11:30] LABS: BASOPHILS % (AUTO) 0.5 %; EOSINOPHILS # (AUTO) 0.1 10^3/uL (0.0-0.7); EOSINOPHILS % (AUTO) 2.5 %; HGB - HEMOGLOBIN 14.6 g/dL (14.0-18.0); LYMPHOCYTES # (AUTO) 1.9 10^3/uL (1.5-3.5); LYMPHOCYTES % (AUTO) 34.7 %; MEAN CORPUSCULAR HEMOGLOBIN 30.7 pg (27.0-31.0); MEAN CORPUSCULAR VOLUME 90.5 fL (80.0-94.0); MEAN PLATELET VOLUME 9.4 fL (7.4-11.4); MONOCYTES # (AUTO) 0.4 10^3/uL (0.0-1.0); MONOCYTES % (AUTO) 6.7 %; NEUTROPHILS # (AUTO) 3.1 10^3/uL (1.5-6.6); NEUTROPHILS % (AUTO) 55.2 %; PLT - PLATELET COUNT 199 10^3/uL (130-450); RED BLOOD COUNT 4.75 10^6/uL (4.70-6.10); RED CELL DISTRIBUTION WIDTH 12.9 % (12.0-15.0); WHITE BLOOD COUNT 5.6 x10^3/uL (4.8-10.8)
[2024-05-22 11:39] LABS: ESTIMATED AVERAGE GLUCOSE 143 mg/dL (70-100); HEMOGLOBIN A1c% 6.6 % (4.27-6.07)
[2024-05-22 11:43] LABS: ALBUMIN 4.5 g/dL (3.2-5.5); ALBUMIN/GLOBULIN RATIO 1.7 (1.0-2.2); BILIRUBIN,TOTAL 0.7 mg/dL (0.2-1.0); CALCIUM 10.1 mg/dL (8.5-10.3); CREATININE 1.2 mg/dL (0.6-1.3); POTASSIUM 4.2 mmol/L (3.5-4.5); TOTAL PROTEIN 7.1 g/dL (6.4-8.9)
== END 2024-05-22 11:16 | disposition home or self-care (01) ==
LOC: LAB 11:15
PROVIDERS: ATTEND Urology
DX: E29.1 Testicular hypofunction (principal)
CPT/HCPCS: 36415; 80053; 82670; 83036; 84403; 85025

== ENCOUNTER 2024-06-24 11:45 | Outpatient (CLI) | payer MEDICARE, BC ==
[2024-06-24 11:59] LABS: BASOPHILS % (AUTO) 0.3 %; EOSINOPHILS # (AUTO) 0.1 10^3/uL (0.0-0.7); EOSINOPHILS % (AUTO) 1.2 %; HCT - HEMATOCRIT 44.4 % (42.0-52.0); LYMPHOCYTES # (AUTO) 2.2 10^3/uL (1.5-3.5); MEAN CORPUSCULAR HGB CONC 33.8 g/dL (32.0-36.0); MEAN CORPUSCULAR VOLUME 91.7 fL (80.0-94.0); MEAN PLATELET VOLUME 9.5 fL (7.4-11.4); MONOCYTES # (AUTO) 0.6 10^3/uL (0.0-1.0); MONOCYTES % (AUTO) 6.1 %; NEUTROPHILS # (AUTO) 6.2 10^3/uL (1.5-6.6); NEUTROPHILS % (AUTO) 67.6 %; PLT - PLATELET COUNT 192 10^3/uL (130-450); RED BLOOD COUNT 4.84 10^6/uL (4.70-6.10); RED CELL DISTRIBUTION WIDTH 13.4 % (12.0-15.0); WHITE BLOOD COUNT 9.1 x10^3/uL (4.8-10.8)
== END 2024-06-24 11:46 | disposition home or self-care (01) ==
LOC: LAB 11:45
PROVIDERS: ATTEND Urology
DX: E29.1 Testicular hypofunction (principal)
CPT/HCPCS: 36415; 82670; 84403; 85025